=== PATIENT | male | born 1940 | race Caucasian/White ===

== ENCOUNTER 2017-07-03 15:58 | Emergency (ER) | payer OTHER ==
--- OUTSIDE RECORDS SUMMARY | 2017-07-03 16:01 | XMS REPORT | Clinical Summary ---
:1940 Author Organization [facility] Address [address] [place] [address] Care Team Providers Name Role Phone Asked, No Pcp Primary Care Provider Unavailable Allergies No Known Allergies Current Medications Prescription Sig. Disp. Refills Start Date End Date Status donepezil (ARICEPT) 5 Take 5 mg by Active MG tablet mouth nightly. acetaminophen Take 2 tablets 180 tablet 0 07/02/2017 08/01/2017 Active (TYLENOL) 500 MG (1,000 mg total) tablet by mouth every 8 (eight) hours for 30 days. traMADol (ULTRAM) 50 Take 1 tablet 30 tablet 0 07/02/2017 07/16/2017 Active mg tablet (50 mg total) by mouth every 6 (six) hours as needed for moderate pain for up to 14 days. enoxaparin (LOVENOX) Inject 0.4 mL 21 Syringe 0 07/03/2017 07/24/2017 Active 40 mg/0.4 mL syringe (40 mg total) under the skin daily for 21 days. ibuprofen Take 1 tablet 120 tablet 0 07/02/2017 08/01/2017 Active (ADVIL,MOTRIN) 400 MG (400 mg total) tablet by mouth every 6 (six) hours for 30 days. methocarbamol Take 0.5 tablets 60 tablet 0 07/02/2017 08/01/2017 Active (ROBAXIN) 500 MG (250 mg total) tablet by mouth 4 (four) times a day for 30 days. 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 OPEN LEFT COLON MD Alex RESECTION W/ COLOSTOMY 06/24/2017 - Hospital Encounter General Surgery Maximilian Saleh Malignant neoplasm of sigmoid colon; 07/02/2017 MD Alex Colonic mass 06/24/2017 Anesthesia Event Gastroenterology Stella Rodriguez, AUTOMOTIVE TIRE TESTING SUPERVISOR 06/24/2017 Procedure Pass Gastroenterology 06/24/2017 Surgery Gastroenterology Maximilian Saleh COLONOSCOPY w bx MD Alex after 07/02/2016 Social History Tobacco Use Types Packs/Day Years Used Date Never Smoker Smokeless Tobacco: Never Used Alcohol Use Drinks/Week oz/Week Comments Yes social Sex Assigned at Date Recorded Not on file Last Filed Vital Signs Vital Sign Reading Time Taken Blood Pressure 129/61 07/02/2017 7:16 AM CDT Pulse 72 07/02/2017 7:16 AM CDT Temperature 36.7 C (98 F) 07/02/2017 7:16 AM CDT Respiratory Rate 17 07/02/2017 7:16 AM CDT Oxygen Saturation 98% 07/02/2017 7:16 AM CDT Inhaled Oxygen Concentration - - Weight 57.6 kg (127 lb) 06/24/2017 9:44 PM CDT Height 177.8 cm (5' 10") 06/24/2017 9:44 PM CDT Body Mass Index 18.22 06/24/2017 9:44 PM CDT Plan of Treatment Health Maintenance Due Date Last Done Comments ZOSTER VACCINE 1999 PNEUMOCOCCAL POLYSACCHARIDE VACCINE AGE 65 AND OVER 2004 PNEUMOCOCCAL-13 2004 INFLUENZA VACCINE 10/13/2017 Procedures Procedure Name Priority Date/Time Associated Diagnosis Comments HC CATH DUAL LUMEN Routine 06/25/2017 3:43 PM Results for this PICC CDT procedure are in the results section. HC US GUIDED Routine 06/25/2017 3:43 PM Results for this VASCULAR ACCESS CDT procedure are in the results section. HC CVL PICC INSERT Routine 06/25/2017 3:43 PM Results for this 5 YRS OR > CDT procedure are in the results section. CONSULT TO OSTOMY Routine 06/25/2017 2:48 PM CARE NURSE CDT ARTERIAL LINE Routine 06/25/2017 9:11 AM CDT Procedure Note - Prateek Rushing MD - 06/25/2017 9:11 AM CDT Arterial line Performed by: GEOVANNY TONEY Authorized by: HUMZA CAMPO Patient Location: OR Staff: Anesthesiologist: HUMZA CAMPO Performed by: Anesthesiologist Pre-procedure: patient identified, IV checked, site and side verified, risks and benefits discussed, procedure verified, surgical consent complete, patient position confirmed, monitors and equipment checked and pre-op evaluation complete MSBT: antiseptic used, all elements of maximal sterile barrier technique followed, hand hygiene performed, cap/gown used by other personnel and solutions labeled Indications: Indications: hemodynamic monitoring Anesthesia: Anesthesia: General Procedure Details: Arterial Line placement: Placed post induction Line placement site: Radial Line placement side: Right Arterial line gauge: 20 G Number of attempts: 1 Ultrasound guidance used: No Post-procedure: Post-procedure: Sterile dressing applied Post procedure circulation, sensation, movement: Normal Patient tolerance: Patient tolerated the procedure well with no immediate complications OPEN LEFT COLON RESECTION W/ 06/25/2017 9:00 AM CDT Malignant neoplasm of COLOSTOMY sigmoid colon Special Needs EST 2.5HRS MS AN EPIDURAL BLOCK POST-OP PAIN Routine 06/25/2017 8:49 AM CDT Procedure Note - Humza Campo, - 06/25/2017 8:49 AM CDT Epidural Block Performed by: HUMZA CAMPO Authorized by: HUMZA CAMPO Start Time: 06/25/2017 8:30 AM End Time: 06/25/2017 8:49 AM Reason for Block: post-op pain management Performed by: Anesthesiologist Preprocedure: patient identified, IV checked, site and side verified, risks and benefits discussed, procedure verified, surgical consent completed, patient position confirmed, monitors and equipment checked and pre-op evaluation completed Patient Position: Sitting Prep: Betadine Monitoring: Blood pressure monitoring, heart rate and continuous pulse oximetry Approach: Midline Interspace: T10-11 Injection Technique: OSWALDO air Needle Type: Tuohy Needle Gauge: 17 Loss of resistance: 4 cm Catheter at Skin Depth: 9 cm Test Dose: Negative and lidocaine 1.5% with epinephrine 1-to-200,000 Number of Attempts: 1 Block Outcome: No apparent complications, patient comfortable and patient tolerated procedure well Post-procedure: Patient returned to supine position with left lateral displacement and sterile dressing applied Time: 06/25/2017 8:30 AM CONSULT TO OSTOMY CARE NURSE STAT 06/24/2017 3:02 PM CDT COLONOSCOPY w bx 06/24/2017 10:00 AM CDT History of rectal cancer after 07/02/2016 Results Estimated GFR (07/01/2017 3:55 AM)Only the most recent of7 resultswithin the time period is included. Component Value Ref Range GFR Non Af Amer >90 mL/min/1.73 m2 GFR Af Amer >90 mL/min/1.73 m2 Comment: Chronic kidney disease: <60 mL/min/1.73m2 Kidney failure: <15 mL/min/1.73m2 The estimated GFR is calculated from the IDMS-traceable Modification of Diet in Renal Disease Equation. The accuracy of the calculation is poor when the creatinine is normal. Calculated values >90 mL/min/1.73m2 are not reported. This equation has not been validated in children (<18 years), women, the elderly (>70 years), or ethnic groups other than Caucasians and Americans. Specimen Performing Laboratory Plasma specimen [facility] DEPARTMENT OF PATHOLOGY AND GENOMIC MEDICINE [address] [place] [id number] Phosphorus level (07/01/2017 3:55 AM)Only the most recent of7 resultswithin the time period is included. Component Value Ref Range Phosphorus 3.3 2.4 - 4.5 mg/dL Specimen Performing Laboratory Plasma specimen [facility] DEPARTMENT OF PATHOLOGY AND [facility] MEDICINE [address] [place] [address] Magnesium level (07/01/2017 3:55 AM)Only the most recent of7 resultswithin the time period is included. Component Value Ref Range Magnesium 2.0 1.6 - 2.4 mg/dL Specimen Performing Laboratory Plasma specimen [facility] DEPARTMENT OF PATHOLOGY AND GENOMIC MEDICINE [address] [place] [id number] Basic metabolic panel (07/01/2017 3:55 AM)Only the most recent of7 resultswithin the time period is included. Component Value Ref Range Sodium 142 135 - 148 mEq/L Potassium 3.4 (L) 3.5 - 5.0 mEq/L Chloride 104 98 - 112 mEq/L CO2 27 24 - 31 mEq/L Anion gap 11 7 - 15 mEq/L Comment: Starting from June , anion gap calculation no longer incorporates potassium. Please note the change. BUN 11 8 - 23 mg/dL Creatinine 0.6 (L) 0.7 - 1.2 mg/dL Glucose 92 65 - 99 mg/dL Calcium 8.9 8.8 - 10.2 mg/dL Specimen Performing Laboratory Plasma specimen [facility] DEPARTMENT OF PATHOLOGY AND [facility] [address] [place] [address] POC glucose (07/01/2017 3:29 AM)Only the most recent of22 resultswithin the time period is included. Component Value Ref Range POC glucose 101 (H) 65 - 99 mg/dL Comment: [facility] Notified RN Meter ID: [id number] Chronic Condition Nurse: Himanshu Mullen Specimen Performing Laboratory [facility] DEPARTMENT OF PATHOLOGY AND [facility] MED[facility]INE [address] [place] [address] CBC with platelet and differential (07/01/2017 3:20 AM)Only the most recent of7 resultswithin the time period is included. Component Value Ref Range WBC 6.26 4.50 - 11.00 k/uL RBC 3.78 (L) 4.40 - 6.00 m/uL HGB 9.8 (L) 14.0 - 18.0 g/dL HCT 31.8 (L) 41.0 - 51.0 % MCV 84.1 82.0 - 100.0 fL MCH 25.9 (L) 27.0 - 34.0 pg MCHC 30.8 (L) 31.0 - 37.0 g/dL RDW - SD 42.6 37.0 - 55.0 fL MPV 9.4 8.8 - 13.2 fL Platelet count 230 150 - 400 k/uL Nucleated RBC 0.00 /100 WBC Neutrophils 66.4 39.0 - 69.0 % Lymphocytes 19.0 (L) 25.0 - 45.0 % Monocytes 8.9 0.0 - 10.0 % Eosinophils 4.8 0.0 - 5.0 % Basophils 0.6 0.0 - 1.0 % Immature granulocytes 0.3Comment: "Immature granulocytes" 0.0 - 1.0 % (promyelocytes, myelocytes, metamyelocytes) Specimen Performing Laboratory Blood [facility] DEPARTMENT OF PATHOLOGY AND [facility] MEDICINE [address] [place] [id number] Triglycerides (06/27/2017 4:00 AM) Component Value Ref Range Triglycerides 52 <150 mg/dL Specimen Performing Laboratory Plasma specimen [facility] DEPARTMENT OF PATHOLOGY AND GENOMIC MEDICINE [address] [place] [id number] XR Picc Chest Portable (06/25/2017 4:13 PM) Specimen Performing Laboratory [facility] [address] [place] [address] Narrative EXAMINATION:XR PICC CHEST PORTABLE CLINICAL HISTORY:K63.9 Disease of intestineunspecified, tpn COMPARISON:October 18, 2013 chest IMPRESSION: Right PICC line catheter has been placed. Catheter tip superior vena cava level at the tani. The lungs are clear. The heart is not enlarged. Moderate vascular ectasia and atherosclerosis of the aorta. Left subclavian transvenous pacer as before. There Lead wire projects over the left chest and neck The bony structures are within normal limits. [id number] Procedure Note Hm Interface, Radiology Results Incoming - 06/25/2017 4:43 PM CDT EXAMINATION: XR PICC CHEST PORTABLE CLINICAL HISTORY: K63.9 Disease of intestine unspecified, tpn COMPARISON: October 18, 2013 chest IMPRESSION: Right PICC line catheter has been placed. Catheter tip superior vena cava level at the tani. The lungs are clear. The heart is not enlarged. Moderate vascular ectasia and atherosclerosis of the aorta. Left subclavian transvenous pacer as before. There Lead wire projects over the left chest and neck The bony structures are within normal limits. [id number] PICC INSERTION (06/25/2017 3:43 PM) Narrative Stewart Whitaker 06/25/20173:46 PM PICC insertion Date/Time: 06/25/2017 3:44 PM Performed by: LISA HIGGINBOTHAM Authorized by: Maximilian SALEH Consent: Consent obtained:Verbal Consent given by:Patient Risks discussed: arterial puncture, incorrect placement, nerve damage, bleeding, infection, superficial thrombus and deep vein thrombus Martelle protocol: Procedure explained and questions answered to patient or proxy's satisfaction: yes Relevant documents present and verified: yes Test results available and properly labeled: yes Imaging studies available: yes Required blood products, implants, devices, and special equipment available: yes Site/side marked: yes Immediately prior to procedure, a time out was called: yes Patient identity confirmed:Verbally with patient, arm band and hospital-assigned identification number Pre-procedure details: Hand hygiene: Hand hygiene performed prior to insertion Sterile barrier technique: All elements of maximal sterile technique followed Skin preparation:2% chlorhexidine Skin preparation agent: Skin preparation agent completely dried prior to procedure Anesthesia (see MAR for exact dosages): Anesthesia method:Local infiltration Local anesthetic:Lidocaine 1% w/o epi Route of administration:Subcutaneous PICC Line Placement Details (Will create an LDA): Patient position:Flat Vessel Size (mm): 4.3. Indication:TPN Location:Right basilic Site selection rationale:LEFT AICD Device Type:Non-valved Catheter size:5 Fr PICC Characteristics: Catheter Brand:LoopIt POWER PICC External Catheter Length (cm):0 Internal Catheter Length (cm):36 Total Catheter Length (cm):36 Catheter Lot Number:[id number] Catheter Expiration Date:12/12/2018 Procedure Details: Landmarks identified: yes Ultrasound guidance: yes Sterile ultrasound techniques: Sterile gel and sterile probe covers were used Number of attempts:1 Number of PICC kits used during procedure:1 Purpose of procedure:PICC Placement Successful PICC Placement: Yes Patency/Placement:Flushes without difficulty, flushed with 10 mL normal saline, positive blood return, injection cap placed and x-ray placement verified PICC placed utlizing ultrasound-guided Modified Seldinger Technique: Yes Dressing/Securement:Antimicrobial dressing applied and catheter securement device Blood Loss Amount:Less than 20 mL Post-Procedure Details: Post-procedure:Dressing applied Tip placement confirmed by chest x-ray: Yes Patient tolerance of procedure:Tolerated well, no immediate complications Surgical pathology request (06/25/2017 1:15 PM)Only the most recent of3 resultswithin the time period is included. Component Value Ref Range Surgical pathology report See link below for PDF Lab Report Result status This is Supplemental Report to [id number] Specimen Performing Laboratory [facility] DEPARTMENT OF PATHOLOGY AND GENOMIC MEDICINE [address] [place] [id number] ECG 12 lead (06/25/2017 7:55 AM) Component Value Ref Range Ventricular rate 60 Atrial rate 60 MS interval 236 QRSD interval 174 QT interval 478 QTC interval 478 P axis 1 19 QRS axis 1 -82 T wave axis 82 EKG impression AV dual-paced rhythm with prolonged AV conduction-Abnormal ECG- In automated comparison with ECG of 18-OCT-2013 07:43,-Electronic ventricular pacemaker has replaced Sinus rhythm-Vent. rate has increased BY24 BPM- Specimen Performing Laboratory [facility] [address] [place] [address] Hepatic function panel (06/25/2017 4:00 AM) Component Value Ref Range Albumin 3.1 (L) 3.5 - 5.0 g/dL Total bilirubin 0.8 0.0 - 1.2 mg/dL Bilirubin direct <0.2 0.0 - 0.3 mg/dL Alkaline phosphatase 50 40 - 129 U/L Protein 5.9 (L) 6.3 - 8.3 g/dL Comment: 4.6-7.0 g/dL 1 week 4.4-7.6 g/dL 7 months-1year5.1-7.3 g/dL 1-2 years5.6-7.5 g/dL >3 years6.0-8.0 g/dL 18-150 6.3-8.3 g/dL ALT 7 5 - 50 U/L AST 19 10 - 50 U/L Specimen Performing Laboratory Plasma specimen [facility] DEPARTMENT OF PATHOLOGY AND [facility] [address] [place] [address] Partial thromboplastin time, activated (06/25/2017 3:30 AM) Component Value Ref Range PTT 29.8 23.0 - 36.0 sec Comment: PTT therapeutic range for unfractionated heparin is 61.0-112.0 seconds which corresponds to Anti-Xa 0.3-0.7 U/ml. Specimen Performing Laboratory Blood [facility] DEPARTMENT OF PATHOLOGY AND [address] [address] Prothrombin time with INR (06/25/2017 3:30 AM) Component Value Ref Range Prothrombin time 15.0 12.0 - 15.0 sec INR 1.2 Comment: The International Normalized Ratio (INR) is a therapeutic monitoring tool for patients who are stable on oral anticoagulant therapy. An INR of 2.0-3.0 is suggested for deep vein thrombosis/pulmonary embolism. Specimen Performing Laboratory Blood [facility] DEPARTMENT OF PATHOLOGY AND [facility] [address] [place] [address] Type and screen (06/25/2017 3:30 AM) Component Value Ref Range ABO grouping A Rh type POS Antibody screen (gel) NEG Specimen Performing Laboratory Blood [facility] DEPARTMENT OF PATHOLOGY AND [address] [address] Prealbumin level (06/24/2017 10:31 AM) Component Value Ref Range Prealbumin 12 (L) 16 - 32 mg/dL Specimen Performing Laboratory Serum [facility] DEPARTMENT OF PATHOLOGY AND GENOMIC MEDICINE [address] [place] [address] Carcinoembryonic antigen (CEA) (06/24/2017 10:31 AM) Component Value Ref Range CEA 3.0 0.0 - 3.8 ng/mL Comment: Reference range for heavy smokers:0.0 - 5.5 ng/mL The MILLY Simran 8000 CEA immunoassay was used. Results obtained with different assay methods or kits should not be used interchangeably and may be different. Specimen Performing Laboratory Serum [facility] DEPARTMENT OF PATHOLOGY AND GENOMIC MEDICINE [address] [place] [address] after 07/02/2016 Insurance Payer Benefit Plan / Group Subscriber ID Type Phone Address MEDICARE MEDICARE PART A AND B xxxxxxxxxx Medicare [place] AET[employer]MNITY xxxxxxxxx Indemnity [phone] [address]
--- NOTE | 2017-07-03 17:36 | RAD REPORT ---
EXAM DESCRIPTION: Jarred Single View07/03/2017 5:14 pm CLINICAL HISTORY: fever COMPARISON: May 1999 FINDINGS: A curvilinear density present the upper outer right hemithorax. The lungs appear clear of acute infiltrate. The heart is normal size. Pacemaker leads are place IMPRESSION: Curvilinear density in the upper outer right hemithorax probably represents a skin fold rather than a pneumothorax. However, this should confirmed with a frontal chest film obtained in exp iration
[2017-07-03 17:46] LABS: Absolute Lymphocytes (CBC) 0.3 K/uL (0.7-4.9); Absolute Monocytes 0.2 K/uL (0.1-1.3); Absolute Neutrophil 7.5 K/uL (1.8-8.0); Basophils % 0.3 % (0-1.3); Hematocrit 28.9 % (39.6-49.0); Lymphocytes % 4.1 % (15.3-44.8); MCH 26.1 pg (27.0-35.0); MCV 80.7 fL (80-100); MPV 7.5 fL (7.6-11.3); Monocytes % 2.3 % (3.3-12.3); RBC Red Blood Cell Count 3.59 M/uL (4.33-5.43)
[2017-07-03 17:53] LABS: Protime INR 1.17
[2017-07-03 17:57] LABS: Bicarbonate 27 mEq/L (21-31); Glucose Level 109 mg/dL (65-120); Lipase 16 U/L (22-51); Potassium 3.2 mEq/L (3.6-5.0); Sodium Level 138 mEq/L (135-145)
[2017-07-03] MEDS ORDERED: NA CHLORIDE 0.9% 500 ML ONE ×3 (18:00→21:30)
[2017-07-03 18:03] LABS: ALT/SGPT 30 IU/L (10-60); AST/SGOT 39 IU/L (10-42); Albumin 2.8 g/dL (3.2-5.5); Alkaline Phosphatase 49 IU/L (42-121); Amylase Level 44 U/L (28-100); BUN Blood Urea Nitrogen 16 mg/dL (6-20); Bilirubin Direct < 0.1 mg/dL (0-0.2); Bilirubin Total 0.5 mg/dL (0.3-1.2); Creatine Phosphokinase 296 IU/L (22-269); Protein, Total 6.3 g/dL (6.0-8.3)
[2017-07-03 18:27] LABS: Platelet Estimate ADEQ; Urine White Blood Cell Casts OK
[2017-07-03 18:28] LABS: Blood Morphology Comment NOT SEEN (NOT SEEN)
[2017-07-03 19:18] LABS: Urine Blood 2+ (NEG); Urine Glucose NEGATIVE (NEG); Urine Protein 1+ (NEG); Urine Specific Gravity 1.015 (1.005-1.030)
[2017-07-03 19:34] LABS: Urine Bacteria LOADED /HPF (NONE SEEN); Urine RBC <5 /HPF (NONE SEEN)
[2017-07-03 19:35] LABS: Urine Culture Reflex Order NOT NEEDED
[2017-07-03] MEDS ORDERED: CEFTRIAXONE/SWI 1gm 1 GM/10 ML SYR ONE (20:07)
[2017-07-03] MEDS ORDERED: NA CHLORIDE 0.9% 1,000 ML ONE (20:07)
--- NOTE | 2017-07-03 21:00 | RAD REPORT ---
EXAM DESCRIPTION: CT - Chest Abdomen Pelvis W Cont - 07/03/2017 8:43 pm CLINICAL HISTORY: Chest and abdominal pain. Colon carcinoma COMPARISON: May 2017 TECHNIQUE: Computed axial tomography of the chest, abdomen and pelvis was obtained. 100 cc Isovue-30 0 was administered intravenously. Oral contrast was given. All CT scans are performed using dose optimization technique as appropriate and may include automated exposure control or mA/KV adjustment according to patient size. FINDINGS: A pleural effusion is not present. A pericardial effusion is not present. The lungs are essentially clear. . No mediastinal or hilar lymphadenopathy is seen 1 A 4 millimeter area of enhancement within segment 6 of the liver is unchanged. Spleen, pancreas, adrenals and kidneys appear unremarkable. A left colectomy is present. A colostomy is present within left abdomen. A Nishant's pouch is noted. A bowel obstruction is not noted. Bowel wall is not thickened. Contrast is present within the esopha lexis indicative of GE reflux. The wall of the bladder is thickened IMPRESSION: Unremarkable CT chest Left hemicolectomy with left colostomy and Nishant's pouch. No obstruction. 4 millimeter area of enhancement within segment 6 liver is unchanged Thickening of the wall of bladder may indicate cystitis or incomplete distention
[2017-07-03] MEDS ORDERED: FENTANYL CITR 100 MCG/2 ML ONE (21:30)
--- NOTE | 2017-07-03 22:33 | ER ---
Nurse's Notes [facility] Name: Stewart Anguiano Age: 77 yrs Sex: Male : 1940 Arrival Date: 07/03/2017 Time: 16:04 Bed 20 Private MD: Diagnosis: Urinary tract infection, site not specified;Other sepsis Presentation: 07/03 15:57 Presenting complaint: EMS states: Pt. is a 77 yr. male, A \T\ O x 4, home health nurse rb1 said the pt. had a fever of 102 but when EMS arrived temperature was 100.4, BP 105/52, P 110, 96% RA. C/o abdominal pain from a new colostomy that was placed about a week ago. History of colon cancer, has colostomy bag in place. NKA. Transition of care: patient was not received from another setting of care. Onset of symptoms is unknown. Initial Sepsis Screen: Does the patient meet any 2 criteria? No. Patient's initial sepsis screen is negative. Does the patient have a suspected source of infection? No. Patient's initial sepsis screen is negative. Care prior to arrival: None. 15:57 Method Of Arrival: EMS: [facility] 15:57 Acuity: [id number] 3 rb1 Triage Assessment: 15:57 General: Appears in no apparent distress. comfortable, slender, Behavior is calm, rb1 cooperative, Reports fever for. Pain: Complains of pain in abdomen Pain currently is 7 out of 10 on a pain scale. Pain began new colostomy place a week or so ago. Neuro: Level of Consciousness is awake, alert, obeys commands, Oriented to person, place, time, situation. Cardiovascular: Capillary refill < 3 seconds is brisk in bilateral fingers. Respiratory: Airway is patent Respiratory effort is even, unlabored, Respiratory pattern is regular, symmetrical. GI: colostomy placed a week or so ago Bowel sounds present X 4 quads. : No signs and/or symptoms were reported regarding the genitourinary system. Derm: Skin is pink, warm \T\ dry. Musculoskeletal: Range of motion: intact in all extremities. 15:57 Derm: 18 ankita noted to midline abdomen s/p new colostomy about a week ago. rb1 Historical: - Allergies: 15:57 No Known Allergies; rb1 - PMHx: 15:57 colon cancer; rb1 - PSHx: 15:57 Colostomy; rb1 - Immunization history:: Adult Immunizations unknown. - Social history:: Smoking status: unknown. Screenin:57 Abuse screen: Denies threats or abuse. Nutritional screening: No deficits noted. rb1 Tuberculosis screening: No symptoms or risk factors identified. Fall Risk None identified. Assessment: 15:57 General: See triage assessment. rb1 16:48 Reassessment: Patient appears in no apparent distress at this time. No changes from rb1 previously documented assessment. 17:47 Reassessment: Patient appears in no apparent distress at this time. Patient and/or rb1 family updated on plan of care and expected duration. Pain level reassessed. Patient is alert, oriented x 3, equal unlabored respirations, skin warm/dry/pink. 18:44 Reassessment: Patient appears in no apparent distress at this time. No changes from rb1 previously documented assessment. 19:15 Reassessment: Patient appears in no apparent distress at this time. Patient and/or bs1 family updated on plan of care and expected duration. Pain level reassessed. Patient is alert, oriented x 3, equal unlabored respirations, skin warm/dry/pink. Report given by YENIFER Moreira. 19:15 General: Appears uncomfortable. Neuro: Level of Consciousness is awake, alert, Oriented bs1 to person, place, time. Cardiovascular: Denies chest pain, palpitations, shortness of breath, Heart tones S1 S2 present. Respiratory: Airway is patent Trachea midline Breath sounds are clear bilaterally. GI: Abdomen is flat, ankita noted from previous surgery to mid abdominal wall, colostomy bag noted to left lower quad. Colostomy site Bowel sounds present X 4 quads. Abdomen is tender to palpation X 4 quads. GI:. : No deficits noted. No signs and/or symptoms were reported regarding the genitourinary system. Musculoskeletal: Circulation, motion, and sensation intact. Capillary refill < 3 seconds. 22:15 Reassessment: Changed patients colostomy bag, applied gladys 17428 70mm 2 3/4 in bs1 bag. Stoma size 38mm x 1 1/2. Patient tolerated, foul odor noted, patients stoma not pink, dark green/ brownish in color, red around stoma site, patient reports pain to site. Vital Signs: 15:57 BP 115 / 59; Pulse 79; Resp 18; Temp 99.1(TE); Pulse Ox 96% on R/A; Weight 55.79 kg; rb1 Height 5 ft. 7 in. (170.18 cm); Pain 7/10; 17:00 BP 80 / 64; Pulse 71; Resp 18; Pulse Ox 97% on R/A; rb1 17:11 BP 96 / 42; Pulse 66; Resp 17; Pulse Ox 98% on R/A; rb1 17:30 BP 108 / 54; Pulse 73; Resp 19; Temp 99.4(TE); Pulse Ox 96% on R/A; rb1 17:45 BP 112 / 49; Pulse 62; Resp 20; Pulse Ox 92% on R/A; rb1 18:03 BP 109 / 73; Pulse 71; Resp 18; Pulse Ox 98% on R/A; rb1 18:19 Temp 99.5(TE); rb1 19:03 BP 118 / 77; Pulse 87; Resp 18; Pulse Ox 99% on R/A; bs1 20:03 BP 128 / 58; Pulse 80; Resp 17; Pulse Ox 100% on R/A; bs1 21:03 BP 117 / 57; Pulse 70; Resp 10; Pulse Ox 100% on R/A; Pain 5/10; bs1 21:30 BP 112 / 52; Pulse 81; Resp 17; Pulse Ox 100% on R/A; Pain 6/10; bs1 22:30 BP 111 / 63; Pulse 69; Resp 18; Temp 100.7(T); Pulse Ox 96% on R/A; Pain 6/10; bs1 23:15 BP 115 / 59; Pulse 62; Resp 18; Temp 100.2(T); Pulse Ox 96% on R/A; bs1 15:57 Body Mass Index 19.26 (55.79 kg, 170.18 cm) rb1 17:00 pt. was repositioned and BP rechecked. rb1 ED Course: 15:57 Arm band placed on right wrist. rb1 15:57 Patient has correct armband on for positive identification. Bed in low position. Call rb1 light in reach. Side rails up X 1. Pulse ox on. NIBP on. 16:04 Patient arrived in ED. rb1 16:08 Damián Bhatt PA is PHCP. cp 16:08 Maximiliano Carrasquillo MD is Attending Physician. cp 16:09 Triage completed. rb1 17:14 Chest Single View XRAY In Process Unspecified. EDMS 17:31 Initial lab(s) drawn, by me, sent to lab. First set of blood cultures drawn by me. dh3 17:31 Inserted saline lock: 20 gauge in left antecubital area, using aseptic technique. Blood dh3 collected. 17:48 Second set of blood cultures drawn by venipuncture 21G right ac by me. dh3 17:57 Lillie Carrillo, RN is Primary Nurse. rb1 19:05 Report given to YENIFER Hudson. rb1 19:13 Urine collected: straight cath specimen, cloudy, tanvir colored. dh3 19:49 EKG done, by ED staff, reviewed by Damián ROSS. cc 20:43 CT Chest, Abdomen, Pelvis - W/Contrast In Process Unspecified. EDMS 20:44 CT completed. Patient tolerated procedure well. Patient moved back from CT. cw1 22:15 Dressings: Removed Colostomy bag on left lower quad, applied new Colostomy bag, bs1 Cleansed site with NS, Gladys [id number], 70 mm 2 3/4 in applied, stoma size 38mm x 1 1/2 wide. 23:26 No provider procedures requiring assistance completed. Patient transferred, IV remains bs1 in place. intact. Administered Medications: 18:00 Drug: NS 0.9% 500 ml Route: IV; Rate: bolus; Site: left antecubital; rb1 23:29 Follow up: IV Status: Completed infusion bs1 20:16 Drug: NS 0.9% 500 ml Route: IV; Rate: bolus; Site: left antecubital; bs1 23:28 Follow up: IV Status: Completed infusion bs1 20:17 Drug: Rocephin - (cefTRIAXone) 1 grams Route: IVPB; Infused Over: 30 mins; Site: left bs1 antecubital; 23:29 Follow up: IV Status: Completed infusion bs1 23:29 Follow up: IV Status: Completed infusion bs1 21:34 Drug: fentaNYL (PF) 25 mcg Route: IVP; Site: left antecubital; bs1 23:28 Follow up: Response: No adverse reaction bs1 21:35 Drug: NS 0.9% 500 ml Route: IV; Rate: bolus; Site: left antecubital; bs1 23:27 Follow up: IV Status: Completed infusion bs1 22:37 Drug: NS 0.9% 1000 ml Route: IV; Rate: 125 ml/hr; Site: left antecubital; bs1 23:29 Follow up: IV Status: Infusion continued upon transfer bs1 Outcome: 22:32 ER care complete, transfer ordered by . cp 23:27 Transferred by ground EMS to [facility], Transfer form completed. X-rays bs1 sent w/ patient. Note: Report given to [facility] 23:27 Condition: stable 23:27 Instructed on the need for transfer, Demonstrated understanding of instructions. 23:30 Patient left the ED. bs1 Addendum: 07/08/2017 09:51 Addendum: Culture Results: Positive urine culture. contacted [facility] who states patient s s has been discharged home. Signatures: Dispatcher [employer] EDMS Coco Montesinos RN RN Isadora Carmona 1 Estella Galeano cc Damián Bhatt PA PA cp Barber, Rebecca, RN RN rb1 Paulette Swift 3 Becca Laird RN RN bs1 Corrections: (The following items were deleted from the chart) 07/03 17:53 17:36 Inserted saline lock: 20 gauge in left antecubital area, using aseptic technique. 3 Blood collected. [facility] 17:53 17:36 Inserted saline lock: 20 gauge in left antecubital area, using aseptic technique. 3 Blood collected. [facility] 17:53 17:34 Initial lab(s) drawn, by dc, sent to lab. First set of blood cultures drawn by [facility], [facility] 19:29 17:30 BP 108 / 54; Pulse 73bpm; Resp 19bpm; Pulse Ox 96% RA; rb1 rb1 22:54 19:15 Reassessment: Patient appears in no apparent distress at this time. Patient bs1 and/or family updated on plan of care and expected duration. Pain level reassessed. Patient is alert, oriented x 3, equal unlabored respirations, skin warm/dry/pink. Report given by YENIFER Moreira bs1 23:04 21:03 BP 111 / 63; Pulse 69bpm; Resp 18bpm; Pulse Ox 96% RA; Temp 100.7F Tympanic; Pain bs1 6/10; bs1 23:26 23:03 BP 111 / 63; Pulse 69bpm; Resp 18bpm; Pulse Ox 96% RA; Temp 100.7F Tympanic; Pain bs1 6/10; bs1
--- NOTE | 2017-07-03 22:33 | EDPHYS ---
Physician Documentation [facility] Name: Stewart Anguiano Age: 77 yrs Sex: Male : 1940 Arrival Date: 07/03/2017 Time: 16:04 Bed 20 Private MD: ED Physician Maximiliano Carrasquillo HPI: 07/03 16:50 This 77 yrs old Male presents to ER via EMS with complaints of Abdominal Pain.cp 16:50 The patient presents with abdominal pain that is diffuse. Associated signs and cp symptoms: Pertinent positives: fever, Pertinent negatives: blood in stools, constipation, headache, vomiting. 16:50 EMS reports patient had fever of 102 today. Patient released yesterday from [facility] after having colon resection surgery with colostomy placement by DR Adkins on 06-25-2017 for colon cancer. Historical: - Allergies: 15:57 No Known Allergies; rb1 - PMHx: 15:57 colon cancer; rb1 - PSHx: 15:57 Colostomy; rb1 - Immunization history:: Adult Immunizations unknown. - Social history:: Smoking status: unknown. ROS: 17:00 Constitutional: Positive for chills, fever, Negative for poor PO intake. cp 17:00 Eyes: Negative for injury, pain, redness, and discharge. cp 17:00 ENT: Negative for drainage from ear(s), ear pain, sore throat, difficulty swallowing, difficulty handling secretions. 17:00 Cardiovascular: Negative for chest pain, palpitations. 17:00 Respiratory: Negative for cough, shortness of breath, wheezing. 17:00 Abdomen/GI: Positive for abdominal pain, Negative for vomiting, constipation, anorexia, dysphagia, black/tarry stool. 17:00 Back: Negative for pain at rest, pain with movement, radiated pain. 17:00 : Negative for urinary symptoms. 17:00 Skin: Negative for cellulitis, rash. 17:00 Neuro: Negative for altered mental status, headache, weakness. 17:00 All other systems are negative. Exam: 17:05 Constitutional: The patient appears in no acute distress, alert, awake, cp non-diaphoretic, well developed, well nourished, appears ill 17:05 Head/Face: Normocephalic, atraumatic. cp 17:05 Eyes: Periorbital structures: appear normal, Pupils: equal, round, and reactive to light and accomodation, Extraocular movements: intact throughout, Conjunctiva: normal, no exudate, no injection, Sclera: no appreciated abnormality, Lids and lashes: appear normal, bilaterally. 17:05 ENT: External ear(s): are unremarkable, Ear canal(s): are normal, clear, TM's: bulging, is not appreciated, bilaterally, dullness, bilaterally, erythema, is not appreciated, bilaterally, Nose: is normal, Mouth: Lips: dry, Oral mucosa: dry, Posterior pharynx: Airway: no evidence of obstruction, patent, Tonsils: are normal in appearance, Uvula: midline, swelling, is not appreciated, erythema, that is mild, exudate, is not appreciated, Voice: is normal. 17:05 Neck: ROM/movement: is normal, is supple, without pain, no range of motions limitations, no meningismus, no nuchal rigidity, Lymph nodes: no appreciated lymphadenopathy. 17:05 Chest/axilla: Inspection: normal, Palpation: is normal, no crepitus, no tenderness. 17:05 Cardiovascular: Rate: normal, Rhythm: regular, Pulses: Pulses are 2+ in right radial artery and left radial artery. Edema: is not appreciated, JVD: is not appreciated. 17:05 Respiratory: the patient does not display signs of respiratory distress, Respirations: normal, no use of accessory muscles, no retractions, no splinting, no tachypnea, labored breathing, is not present, Breath sounds: are clear throughout, no decreased breath sounds, no stridor, no wheezing. 17:05 Abdomen/GI: Inspection: scar(s), are noted in the midline lower abdomen, colostomy LLQ, Bowel sounds: active, all quadrants, Palpation: soft, in all quadrants, mild abdominal tenderness, in all quadrants, rebound tenderness, is not appreciated, voluntary guarding, is not appreciated, involuntary guarding, is not appreciated. 17:05 Back: pain, is absent, ROM is normal. 17:05 Skin: cellulitis, is not appreciated, no rash present. 17:05 Neuro: Orientation: to person, place, situation, Mentation: lucid, able to follow commands, Cerebellar function: is grossly normal, Motor: moves all fours, strength is normal, Sensation: no obvious gross deficits. 19:30 ECG was reviewed by the Attending Physician. cp Vital Signs: 15:57 BP 115 / 59; Pulse 79; Resp 18; Temp 99.1(TE); Pulse Ox 96% on R/A; Weight 55.79 kg; rb1 Height 5 ft. 7 in. (170.18 cm); Pain 7/10; 17:00 BP 80 / 64; Pulse 71; Resp 18; Pulse Ox 97% on R/A; rb1 17:11 BP 96 / 42; Pulse 66; Resp 17; Pulse Ox 98% on R/A; rb1 17:30 BP 108 / 54; Pulse 73; Resp 19; Temp 99.4(TE); Pulse Ox 96% on R/A; rb1 17:45 BP 112 / 49; Pulse 62; Resp 20; Pulse Ox 92% on R/A; rb1 18:03 BP 109 / 73; Pulse 71; Resp 18; Pulse Ox 98% on R/A; rb1 18:19 Temp 99.5(TE); rb1 19:03 BP 118 / 77; Pulse 87; Resp 18; Pulse Ox 99% on R/A; bs1 20:03 BP 128 / 58; Pulse 80; Resp 17; Pulse Ox 100% on R/A; bs1 21:03 BP 117 / 57; Pulse 70; Resp 10; Pulse Ox 100% on R/A; Pain 5/10; bs1 21:30 BP 112 / 52; Pulse 81; Resp 17; Pulse Ox 100% on R/A; Pain 6/10; bs1 22:30 BP 111 / 63; Pulse 69; Resp 18; Temp 100.7(T); Pulse Ox 96% on R/A; Pain 6/10; bs1 23:15 BP 115 / 59; Pulse 62; Resp 18; Temp 100.2(T); Pulse Ox 96% on R/A; bs1 15:57 Body Mass Index 19.26 (55.79 kg, 170.18 cm) rb1 17:00 pt. was repositioned and BP rechecked. rb1 MDM: 16:19 Patient medically screened. 21:52 Data reviewed: vital signs, nurses notes, lab test result(s), EKG, radiologic studies, cp CT scan, plain films. 22:28 Physician consultation: DR Mcneil, oncall physician for DR Adkins, will accept cp patient as transfer. 07/03 16:40 Order name: Urine Microscopic Only; Complete Time: 19:58 cp 07/03 19:58 Interpretation: Normal except: UWBC TNTC; UBACT LOADED. cp 07/03 16:40 Order name: Urine Culture cp 07/03 16:40 Order name: Amylase, Serum; Complete Time: 18:21 cp 07/03 16:40 Order name: Basic Metabolic Panel; Complete Time: 18:21 cp 07/03 18:32 Interpretation: Normal except: K 3.2. cp 07/03 16:40 Order name: Blood Culture Adult (2) cp 07/03 16:40 Order name: BNP; Complete Time: 18:21 cp 07/03 16:40 Order name: CBC with Diff; Complete Time: 18:32 cp 07/03 18:32 Interpretation: Normal except: RBC 3.59; HGB 9.4; HCT 28.9; MCV 80.7; MCH 26.1; MPV cp 7.5; VERONICA% 93.3; LYM% 4.1; MN% 2.3; LYMA 0.3. 07/03 16:40 Order name: Ckmb; Complete Time: 18:21 cp 07/03 16:40 Order name: CPK; Complete Time: 18:21 cp 07/03 20:54 Interpretation: CPK 296; Reviewed. cp 07/03 16:40 Order name: Lactate; Complete Time: 18:21 cp 07/03 16:40 Order name: LFT's; Complete Time: 18:21 cp 07/03 16:40 Order name: Lipase; Complete Time: 18:21 cp 07/03 16:40 Order name: Procalcitonin; Complete Time: 19:58 cp 07/03 20:01 Interpretation: Procalcitonin 14.02; Reviewed. cp 07/03 16:40 Order name: Protime (+inr); Complete Time: 18:21 cp 07/03 16:40 Order name: Cath; Complete Time: 19:13 cp 07/03 16:40 Order name: Ptt, Activated; Complete Time: 18:21 cp 07/03 16:40 Order name: Sed Rate; Complete Time: 18:32 cp 07/03 16:40 Order name: Troponin (emerg Dept Use Only); Complete Time: 18:21 cp 07/03 16:40 Order name: Chest Single View XRAY; Complete Time: 18:21 cp 07/03 16:40 Order name: Cardiac monitoring; Complete Time: 17:55 cp 07/03 17:51 Order name: CBC Smear Scan; Complete Time: 18:32 EDMS 07/03 18:23 Order name: CT Chest, Abdomen, Pelvis - W/Contrast; Complete Time: 21:01 cp 07/03 19:15 Order name: Urine Dipstick--Ancillary (enter results); Complete Time: 19:58 em1 07/03 19:58 Interpretation: Normal except: UBLD 2+; UPROT 1+; U NIT POSITIVE; UESTR 3+. cp 07/03 16:40 Order name: EKG - Nurse/Tech; Complete Time: 19:48 cp 07/03 16:40 Order name: IV Saline Lock - Large Bore; Complete Time: 17:37 cp 07/03 16:40 Order name: Labs collected and sent; Complete Time: 17:37 cp 07/03 16:40 Order name: O2 Per Protocol; Complete Time: 17:54 cp 07/03 16:40 Order name: O2 Sat Monitoring; Complete Time: 17:54 cp 07/03 16:40 Order name: Urine Dipstick-Ancillary (obtain specimen); Complete Time: 19:13 cp EC:30 Rate is 77 beats/min. QRS interval is prolonged at 152 msec. QT interval is normal. T cp waves are Inverted in lead aVL. Interpreted by me. Reviewed by me. Administered Medications: 18:00 Drug: NS 0.9% 500 ml Route: IV; Rate: bolus; Site: left antecubital; rb1 23:29 Follow up: IV Status: Completed infusion bs1 20:16 Drug: NS 0.9% 500 ml Route: IV; Rate: bolus; Site: left antecubital; bs1 23:28 Follow up: IV Status: Completed infusion bs1 20:17 Drug: Rocephin - (cefTRIAXone) 1 grams Route: IVPB; Infused Over: 30 mins; Site: left bs1 antecubital; 23:29 Follow up: IV Status: Completed infusion bs1 23:29 Follow up: IV Status: Completed infusion bs1 21:34 Drug: fentaNYL (PF) 25 mcg Route: IVP; Site: left antecubital; bs1 23:28 Follow up: Response: No adverse reaction bs1 21:35 Drug: NS 0.9% 500 ml Route: IV; Rate: bolus; Site: left antecubital; bs1 23:27 Follow up: IV Status: Completed infusion bs1 22:37 Drug: NS 0.9% 1000 ml Route: IV; Rate: 125 ml/hr; Site: left antecubital; bs1 23:29 Follow up: IV Status: Infusion continued upon transfer bs1 Disposition: 07/03/17 22:32 Transfer ordered to [facility]. Diagnosis are Urinary tract infection, site not specified, Other sepsis. - Reason for transfer: Higher level of care. - Accepting physician is DR Saleh. - Condition is Stable. - Problem is new. - Symptoms have improved. Signatures: Dispatcher [employer] EDMS Damián Bhatt PA PA cp Barber, Rebecca RN RN rb1 Becca Laird RN RN bs1 Corrections: (The following items were deleted from the chart) 19:33 16:40 Accucheck ordered. stefany rb1
--- NOTE | 2017-07-04 12:04 | EKG ---
Test Date: 2017-07-03 Test Time: 19:23:51 Air Surveillance Operator: KASANDRA MEASUREMENT RESULTS: Intervals: Rate: 77 IL: QRSD: 152 QT: 426 QTc: 482 [place]: P: 13 IL: QRS: -84 T: 78 INTERPRETIVE STATEMENTS: Ventricular-paced rhythm with occasional premature ventricular complexes Abnormal ECG No previous ECG available for comparison Electronically Signed On 07-04-17 12:03:23 CDT by Bry Poole
== END 2017-07-03 23:30 | disposition short-term general hospital (02) ==
LOC: ER 15:58
DX: A41.89 Other specified sepsis (principal); N39.0 Urinary tract infection, site not specified; Z85.038 Personal history of other malignant neoplasm of large intestine; Z98.890 Other specified postprocedural states
CPT/HCPCS: 36415; 71045; 71260; 74177; 80048; 80076; 82150; 82550; 82553; 83605; 83690; 83880; 84145; 84484; 85025; 85610; 85652; 85730; 87040 ×2; 87077; 87086; 87088; 87186; 93005; 96361; 96365; 96366; 96375; 99285; J0696; J3010; J7030; Q9967; 81003; 81015

== ENCOUNTER 2020-06-18 16:44 | Inpatient (IN) | payer OTHER ==
[2020-06-18 20:09] LABS: Urine Blood 3+ (Negative); Urine Glucose Negative (Negative); Urine Protein 2+ (Negative); Urine Specific Gravity 1.025 (1.005-1.030)
[2020-06-18] MEDS ORDERED: NA CHLORIDE 0.9% 1,000 ML ONE (20:11)
[2020-06-18] MEDS ORDERED: FOLIC ACID 5 MG/ML VIAL ONE (20:11)
[2020-06-18 20:14] LABS: Absolute Lymphocytes (CBC) 0.7 K/uL (0.7-4.9); Basophils % 0.3 % (0-1.3); Hematocrit 40.5 % (39.6-49.0); Lymphocytes % 12.2 % (15.3-44.8); MPV 8.5 fL (7.6-11.3)
--- NOTE | 2020-06-18 20:19 | RAD REPORT ---
EXAM DESCRIPTION: CT - Head Brain Wo Cont - 06/18/2020 7:55 pm CLINICAL HISTORY: MENTAL STATUS CHANGE Headache, drowsiness COMPARISON: Head Brain Wo Cont dated 12/31/2016 TECHNIQUE: All CT scans are performed using dose optimization technique as appropriate and may inclu de automated exposure control or mA/KV adjustment according to patient size. FINDINGS: No intracranial hemorrhage, hydrocephalus or extra-axial fluid collection.Advanced brain a trophy is noted.No areas of brain edema or evidence of midline shift. Right vertebral artery is calci fied. The paranasal sinuses and mastoids are clear. The calvarium is intact. IMPRESSION: No acute intracranial abnormality. Advanced brain atrophy.
[2020-06-18 20:21] LABS: Protime INR 1.14
--- NOTE | 2020-06-18 20:22 | RAD REPORT ---
EXAM DESCRIPTION: RAD - Chest Single View - 06/18/2020 8:15 pm CLINICAL HISTORY: DYSPNEA Chest pain. COMPARISON: Chest Single View dated 07/03/2017; Chest Pa And Lat (2 Views) dated 05/26/2017; CHEST PA AND LAT 2 VIEW dated 07/26/2013 FINDINGS: Portable technique limits examination quality. The lungs are grossly clear. The heart is normal in size. No displaced fractures.Dual lead pacer hannah ce is present. IMPRESSION: No acute intrathoracic process suspected.
[2020-06-18 20:35] LABS: ALT/SGPT 21 U/L (12-78); AST/SGOT 24 U/L (15-37); Alkaline Phosphatase 55 U/L (45-117); BUN Blood Urea Nitrogen 22 mg/dL (7-18); Bicarbonate 30 mmol/L (21-32); Bilirubin Direct 0.3 mg/dL (0-0.2); Bilirubin Total 1.4 mg/dL (0.2-1.0); Glucose Level 84 mg/dL (74-106); Magnesium 2.1 mg/dL (1.8-2.4); NT PRO-BNP 189 pg/mL (<450); Potassium 3.6 mmol/L (3.5-5.1); Protein, Total 7.3 g/dL (6.4-8.2); Sodium Level 142 mmol/L (136-145); Troponin (Emerg Dept Use Only) < 0.02 ng/mL (0.0-0.045)
--- NOTE | 2020-06-18 21:13 | RAD REPORT ---
EXAM DESCRIPTION: CTAbdomen Pelvis W Contrast - 06/18/2020 9:01 pm CLINICAL HISTORY: Abdominal pain. HEMATURIA COMPARISON: Abdomen Pelvis W Contrast dated 05/27/2017; CT ABD PELVIS W CONTRAST dated 08/02/2013 TECHNIQUE: Biphasic CT imaging of the abdomen and pelvis was performed with 100 ml non-ionic IV cont rast. All CT scans are performed using dose optimization technique as appropriate and may include automated exposure control or mA/KV adjustment according to patient size. FINDINGS: The lung bases are clear.Pacer wires are present in the inferior aspect heart. The liver, spleen, pancreas, adrenal glands and kidneys are within normal limits. No bowel obstruction, free air, free fluid or abscess. The appendix is normal. No evidence of signi ficant lymphadenopathy. Soft tissue density material is present in the urinary bladder measuring 6.3 x 5.0 cm. This may repre sent a blood clot or mass. No suspicious bony findings. IMPRESSION: Soft tissue density material within the urinary bladder may represent blood clot or mass . Cystoscopy followup would be advised.
--- NOTE | 2020-06-18 21:17 | EDPHYS ---
Physician Documentation [facility] Name: Stewart Anguiano Age: 80 yrs Sex: Male : 1940 Arrival Date: 06/18/2020 Time: 16:50 Bed 6 Private MD: Luis Carrera W ED Physician Damián Mendes HPI: 06/18 19:44 This 80 yrs old Male presents to ER via Ambulatory with complaints of Altered mansoor Mental Status. 19:44 The patient presents with confusion, trouble concentrating. Onset: The symptoms/episode mansoor began/occurred 1 week(s) ago. Possible causes: unknown. Associated signs and symptoms: Pertinent positives: lightheadedness, weakness. Current symptoms: In the emergency department the patient's symptoms are unchanged from the initial presentation, despite home interventions. Patient's baseline: Neuro: alert and fully oriented. The patient has not experienced similar symptoms in the past. Historical: - Allergies: 17:01 No Known Allergies; ll1 - PMHx: 17:01 colon cancer; ll1 - PSHx: 17:01 Colostomy; ll1 - Immunization history:: Flu vaccine is not up to date. - Social history:: Smoking status: Patient denies any tobacco usage or history of. - Family history:: not pertinent. ROS: 19:44 Constitutional: Negative for fever, chills, and weight loss, Eyes: Negative for injury, mansoor pain, redness, and discharge, ENT: Negative for injury, pain, and discharge, Neck: Negative for injury, pain, and swelling, Cardiovascular: Negative for chest pain, palpitations, and edema, Respiratory: Negative for shortness of breath, cough, wheezing, and pleuritic chest pain, Abdomen/GI: Negative for abdominal pain, nausea, vomiting, diarrhea, and constipation, Back: Negative for injury and pain, : Negative for injury, bleeding, discharge, and swelling, MS/Extremity: Negative for injury and deformity, Skin: Negative for injury, rash, and discoloration, Psych: Negative for depression, anxiety, suicide ideation, homicidal ideation, and hallucinations, Allergy/Immunology: Negative for hives, rash, and allergies, Endocrine: Negative for neck swelling, polydipsia, polyuria, polyphagia, and marked weight changes, Hematologic/Lymphatic: Negative for swollen nodes, abnormal bleeding, and unusual bruising. 19:44 Neuro: Positive for weakness. Exam: 19:44 Constitutional: This is a well developed, well nourished patient who is awake, alert, mansoor and in no acute distress. Head/Face: Normocephalic, atraumatic. Eyes: Pupils equal round and reactive to light, extra-ocular motions intact. Lids and lashes normal. Conjunctiva and sclera are non-icteric and not injected. Cornea within normal limits. Periorbital areas with no swelling, redness, or edema. ENT: Nares patent. No nasal discharge, no septal abnormalities noted. Tympanic membranes are normal and external auditory canals are clear. Oropharynx with no redness, swelling, or masses, exudates, or evidence of obstruction, uvula midline. Mucous membranes moist. Neck: Trachea midline, no thyromegaly or masses palpated, and no cervical lymphadenopathy. Supple, full range of motion without nuchal rigidity, or vertebral point tenderness. No Meningismus. Chest/axilla: Normal chest wall appearance and motion. Nontender with no deformity. No lesions are appreciated. Cardiovascular: Regular rate and rhythm with a normal S1 and S2. No gallops, murmurs, or rubs. Normal PMI, no JVD. No pulse deficits. Respiratory: Lungs have equal breath sounds bilaterally, clear to auscultation and percussion. No rales, rhonchi or wheezes noted. No increased work of breathing, no retractions or nasal flaring. Abdomen/GI: Soft, non-tender, with normal bowel sounds. No distension or tympany. No guarding or rebound. No evidence of tenderness throughout. Back: No spinal tenderness. No costovertebral tenderness. Full range of motion. Male : Normal genitalia with no discharge or lesions. Skin: Warm, dry with normal turgor. Normal color with no rashes, no lesions, and no evidence of cellulitis. MS/ Extremity: Pulses equal, no cyanosis. Neurovascular intact. Full, normal range of motion. Neuro: Awake and alert, GCS 15, oriented to person, place, time, and situation. Cranial nerves II-XII grossly intact. Motor strength 5/5 in all extremities. Sensory grossly intact. Cerebellar exam normal. Normal gait. Psych: Awake, alert, with orientation to person, place and time. Behavior, mood, and affect are within normal limits. 20:03 ECG was reviewed by the Attending Physician. [facility] Vital Signs: 17:01 BP 135 / 73; Pulse 80; Resp 17; Temp 98.6; Pulse Ox 98% ; Pain 0/10; ll1 21:31 Pulse 80; Resp 18; Pulse Ox 99% on 3 lpm NC; mg2 23:30 BP 120 / 52; Pulse 75; Resp 18; Pulse Ox 100% on R/A; NIH Stroke Scale Scores: 19:44 NIHSS Score: 0 mansoor MDM: 19:17 Patient medically screened. mansoor 19:48 Differential Diagnosis: electrolyte abnormality, sepsis, UTI, volume depletion. Data mansoor reviewed: vital signs, nurses notes, lab test result(s), EKG, radiologic studies, CT scan. Data interpreted: cafeteria monitor: rate is 80 beats/min, rhythm is regular, Pulse oximetry: on room air is 98 %. Test interpretation: by ED physician or midlevel provider: ECG, plain radiologic studies. Counseling: I had a detailed discussion with the patient and/or guardian regarding: the historical points, exam findings, and any diagnostic results supporting the discharge/admit diagnosis, lab results, radiology results. 06/18 19:43 Order name: Basic Metabolic Panel [facility] 06/18 19:43 Order name: CBC with Diff; Complete Time: 20:34 [facility] 06/18 19:43 Order name: LFT's; Complete Time: 21:11 [facility] 06/18 19:43 Order name: Magnesium; Complete Time: 21:11 [facility] 06/18 19:43 Order name: NT PRO-BNP; Complete Time: 21:11 [facility] 06/18 19:43 Order name: PT-INR; Complete Time: 20:34 [facility] 06/18 19:43 Order name: Troponin (emerg Dept Use Only); Complete Time: 21:11 [facility] 06/18 19:43 Order name: XRAY Chest (1 view); Complete Time: 20:34 [facility] 06/18 19:43 Order name: Urine Culture [facility] 06/18 19:43 Order name: CT Head Brain wo Cont; Complete Time: 20:34 [facility] 06/18 19:43 Order name: Basic Metabolic Panel; Complete Time: 21:11 [facility] 06/18 20:09 Order name: Urine Dipstick-Ancillary; Complete Time: 20:34 [facility] 06/18 20:58 Order name: SARS-COV-2 RT PCR; Complete Time: 21:11 [facility]MS 06/18 19:43 Order name: EKG; Complete Time: 19:44 [facility] 06/18 19:43 Order name: Cardiac monitoring; Complete Time: 19:45 [facility] 06/18 19:43 Order name: EKG - Nurse/Tech; Complete Time: 19:45 [facility] 06/18 19:43 Order name: IV Saline Lock; Complete Time: 19:45 [facility] 06/18 19:43 Order name: Labs collected and sent; Complete Time: 19:45 [facility] 06/18 19:43 Order name: O2 Per Protocol; Complete Time: 19:45 [facility] 06/18 19:43 Order name: O2 Sat Monitoring; Complete Time: 19:45 [facility] 06/18 19:43 Order name: Urine Dipstick-Ancillary (obtain specimen); Complete Time: 19:57 [facility] 06/18 20:35 Order name: CT Abd/Pelvis - IV Contrast Only; Complete Time: 21:44 [facility] 06/18 23:12 Order name: CONS Physician Consult EDMS EC:03 Rate is 65 beats/min. Rhythm is regular. QRS [place] is Normal. WA interval is normal. QRS mansoor interval is normal. QT interval is normal. No Q waves. T waves are Normal. No ST changes noted. Clinical impression: No evidence of ischemia. Interpreted by me. Reviewed by me. Administered Medications: 20:07 Drug: foLIC Acid 1 mg Route: IVPB; Site: left antecubital; [facility] 23:50 Follow up: Response: No adverse reaction; IV Status: Completed infusion 20:11 Drug: NS 0.9% 500 ml Route: IV; Rate: bolus; Site: left antecubital; wh 23:51 Follow up: Response: No adverse reaction; IV Status: Completed infusion 20:29 Drug: NS 0.9% 1000 ml Route: IV; Rate: 125 ml/hr; Site: left antecubital; wh 23:50 Follow up: Response: No adverse reaction; IV Status: Infusion continued upon admission 22:50 Drug: Rocephin - (cefTRIAXone) 1 grams Route: IVPB; Infused Over: 30 mins; Site: left wh antecubital; 23:50 Follow up: Response: No adverse reaction; IV Status: Completed infusion Disposition: 06/18/20 21:16 Hospitalization ordered by Zara Cadet for Observation. Preliminary diagnosis are Altered mental status, unspecified, Dementia in other diseases classified elsewhere, Weakness, Hematuria - bladder soft tissue mass. - Bed requested for Telemetry/MedSurg (observation). - Status is Observation. - Condition is Fair. - Problem is new. - Symptoms have improved. NIH Stroke Scale - NIH Stroke Score Date: 06/18/2020 Time: 19:44 Total Score = 0 1a. Level of Consciousness (LOC) - 0(Alert) 1b. Level of Consciousness (LOC) (Year \T\ Age) - 0(Both) 1c. LOC Commands (Open \T\ Closes Eyes/Materials Recycler) - 0(Both) 2. Best Gaze (Lateral Gaze Paresis) - 0(Normal) 3. Visual Field Loss - 0(No visual loss) 4. Facial Palsy - 0(Normal) 5a. Left Arm: Motor (10-second hold) - 0(No drift) 5b. Right Arm: Motor (10-second hold) - 0(No drift) 6a. Left Leg: Motor (5-second hold - always test supine) - 0(No drift) 6b. Right Leg: Motor (5-second hold - always test supine) - 0(No drift) 7. Limb Ataxia (finger/nose \T\ heel/singh - test with eyes open) - 0(Absent) 8. Sensory Loss (pinprick arms/legs/face) - 0(Normal) 9. Best Language: Aphasia (description/naming/reading) - 0(No aphasia) 10. Dysarthria (speech clarity - read or repeat words) - 0(Normal) 11. Extinction and Inattention (visual/tactile/auditory/spatial/personal) - 0(No abnormality) Initials: mansoor Signatures: Dispatcher [employer] EDMS Damián Mendes MD MD cha Garcia, Cindy RN RN Ami Antonio RN RN Usman Davis RN RN [facility] Meseret Hightower RN RN ll1 Corrections: (The following items were deleted from the chart) 20:11 19:43 CORONAVIRUS+MR.LAB.BRZ ordered. EDCO EDMS 21:45 21:16 Hospitalization Ordered by Zara Cadet MD for Observation. Preliminary [facility] diagnosis is Altered mental status, unspecified; Dementia in other diseases classified elsewhere; Weakness. Bed requested for Telemetry/MedSurg (observation). Status is Observation. Condition is Fair. Problem is new. Symptoms have improved. mansoor 23:15 21:45 06/18/2020 21:16 Hospitalization Ordered by Zara Cadet MD for Observation. Preliminary diagnosis is Altered mental status, unspecified; Dementia in other diseases classified elsewhere; Weakness; Hematuria - bladder soft tissue mass. Bed requested for Telemetry/MedSurg (observation). Status is Observation. Condition is Fair. Problem is new. Symptoms have improved. mansoor 06/19 00:06 [id number] 23:15 06/18/2020 21:16 Hospitalization Ordered by Zara Cadet MD for Observation. Preliminary diagnosis is Altered mental status, unspecified; Dementia in other diseases classified elsewhere; Weakness; Hematuria - bladder soft tissue mass. Bed requested for Telemetry/MedSurg (observation). Status is Observation. Condition is Fair. Problem is new. Symptoms have improved. cg
--- NOTE | 2020-06-18 21:17 | ER ---
Nurse's Notes [facility] Name: Stewart Anguiano Age: 80 yrs Sex: Male : 1940 Arrival Date: 06/18/2020 Time: 16:50 Bed 6 Private MD: Luis Carrera W Diagnosis: Altered mental status, unspecified;Dementia in other diseases classified elsewhere;Weakness;Hematuria-bladder soft tissue mass Presentation: 06/18 17:01 Chief complaint: Patient states: states he is a danger to himself at home, she ll1 can't watch him all the time anymore. Confusion is slowly progressing. No fever or cough. Coronavirus screen: Client denies travel out of the [place] in the last 14 days. At this time, the client does not indicate any symptoms associated with coronavirus-19. Ebola Screen: Patient denies travel to an Ebola-affected area in the 21 days before illness onset. Initial Sepsis Screen: Does the patient meet any 2 criteria? No. Patient's initial sepsis screen is negative. Does the patient have a suspected source of infection? No. Patient's initial sepsis screen is negative. Risk Assessment: Do you want to hurt yourself or someone else? Patient reports no desire to harm self or others. Onset of symptoms was June 13, 2020. 17:01 Method Of Arrival: Ambulatory ll1 17:01 Acuity: RAJEEV 2 ll1 Historical: - Allergies: 17:01 No Known Allergies; ll1 - PMHx: 17:01 colon cancer; ll1 - PSHx: 17:01 Colostomy; ll1 - Immunization history:: Flu vaccine is not up to date. - Social history:: Smoking status: Patient denies any tobacco usage or history of. - Family history:: not pertinent. Screenin:32 Abuse screen: Denies threats or abuse. Denies injuries from another. Nutritional mg2 screening: No deficits noted. Tuberculosis screening: No symptoms or risk factors identified. Fall Risk Secondary diagnosis (15 points) dementia. Assessment: 19:32 General: Appears in no apparent distress. comfortable, Behavior is calm, cooperative. mg2 Pain: Denies pain. Neuro: Level of Consciousness is awake, alert, obeys commands, Oriented to person, place. Cardiovascular: Capillary refill < 3 seconds Patient's skin is warm and dry. Respiratory: Airway is patent Respiratory effort is even, unlabored, Respiratory pattern is regular, symmetrical. GI: No signs and/or symptoms were reported involving the gastrointestinal system. : No signs and/or symptoms were reported regarding the genitourinary system. EENT: No signs and/or symptoms were reported regarding the EENT system. Derm: Skin is intact, is healthy with good turgor, Skin is pink, warm \T\ dry. normal. Musculoskeletal: Circulation, motion, and sensation intact. Capillary refill < 3 seconds. 19:57 Reassessment: patient sent to CT scan via stretcher. mg2 21:31 Reassessment: Patient appears in no apparent distress at this time. patient to be mg2 admitted. 22:00 Reassessment: Patient appears in no apparent distress at this time. Patient and/or wh family updated on plan of care and expected duration. Pain level reassessed. 23:30 Reassessment: Patient and/or family updated on plan of care and expected duration. Pain wh level reassessed. Vital Signs: 17:01 BP 135 / 73; Pulse 80; Resp 17; Temp 98.6; Pulse Ox 98% ; Pain 0/10; ll1 21:31 Pulse 80; Resp 18; Pulse Ox 99% on 3 lpm NC; mg2 23:30 BP 120 / 52; Pulse 75; Resp 18; Pulse Ox 100% on R/A; NIH Stroke Scale Scores: 19:44 NIHSS Score: 0 [facility] ED Course: 16:50 Patient arrived in ED. am2 16:50 Luis Carrera MD is Private Physician. am2 17:03 Triage completed. ll1 17:03 Arm band placed on Patient notified of wait time. ll1 19:15 Usman Davis, YENIFER is Primary Nurse. mg2 19:17 Damián Mendes MD is Attending Physician. mansoor 19:33 Patient has correct armband on for positive identification. mg2 19:33 No provider procedures requiring assistance completed. mg2 19:45 Inserted saline lock: 20 gauge in left antecubital area, using aseptic technique. Blood mg2 collected. 19:55 CT Head Brain wo Cont In Process Unspecified. EDMS 20:15 XRAY Chest (1 view) In Process Unspecified. EDMS 21:01 CT Abd/Pelvis - IV Contrast Only In Process Unspecified. EDMS 21:13 Zara Cadet MD is Hospitalizing Provider. mansoor 23:55 Patient admitted, IV remains in place. Administered Medications: 20:07 Drug: foLIC Acid 1 mg Route: IVPB; Site: left antecubital; mg2 23:50 Follow up: Response: No adverse reaction; IV Status: Completed infusion 20:11 Drug: NS 0.9% 500 ml Route: IV; Rate: bolus; Site: left antecubital; wh 23:51 Follow up: Response: No adverse reaction; IV Status: Completed infusion 20:29 Drug: NS 0.9% 1000 ml Route: IV; Rate: 125 ml/hr; Site: left antecubital; wh 23:50 Follow up: Response: No adverse reaction; IV Status: Infusion continued upon admission 22:50 Drug: Rocephin - (cefTRIAXone) 1 grams Route: IVPB; Infused Over: 30 mins; Site: left antecubital; 23:50 Follow up: Response: No adverse reaction; IV Status: Completed infusion Outcome: 21:16 Decision to Hospitalize by Provider. mansoor 23:54 Admitted to Med/surg accompanied by tech, family with patient, via stretcher, room 214, with chart, Report called to Rosalba Buckley RN 23:54 Condition: stable 23:54 Instructed on the need for admit. 06/19 00:06 Patient left the ED. NIH Stroke Scale - NIH Stroke Score Date: 06/18/2020 Time: 19:44 Total Score = 0 1a. Level of Consciousness (LOC) - 0(Alert) 1b. Level of Consciousness (LOC) (Year \T\ Age) - 0(Both) 1c. LOC Commands (Open \T\ Closes Eyes/Process Engineering Intern) - 0(Both) 2. Best Gaze (Lateral Gaze Paresis) - 0(Normal) 3. Visual Field Loss - 0(No visual loss) 4. Facial Palsy - 0(Normal) 5a. Left Arm: Motor (10-second hold) - 0(No drift) 5b. Right Arm: Motor (10-second hold) - 0(No drift) 6a. Left Leg: Motor (5-second hold - always test supine) - 0(No drift) 6b. Right Leg: Motor (5-second hold - always test supine) - 0(No drift) 7. Limb Ataxia (finger/nose \T\ heel/singh - test with eyes open) - 0(Absent) 8. Sensory Loss (pinprick arms/legs/face) - 0(Normal) 9. Best Language: Aphasia (description/naming/reading) - 0(No aphasia) 10. Dysarthria (speech clarity - read or repeat words) - 0(Normal) 11. Extinction and Inattention (visual/tactile/auditory/spatial/personal) - 0(No abnormality) Initials: mansoor Signatures: Dispatcher [employer] EDUT Damián Mendes MD MD cha Moreno, Amanda am2 Ami Antonio RN RN wh Usman Davis RN RN mg2 Meseret Hightower RN RN ll1 Corrections: (The following items were deleted from the chart) 06/18 21:31 19:32 Neuro: Level of Consciousness is awake, alert, obeys commands, Oriented mg2 to person, place, time, situation, mg2
[2020-06-18] MEDS ORDERED: CEFTRIAXONE/SWI 1gm 1 GM/10 ML SYR ONE (23:04)
[2020-06-19] MEDS ORDERED: NA CHLORIDE 0.9% 1,000 ML IV SCH (00:40)
[2020-06-19] MEDS ORDERED: ACETAMINOPHEN 500 MG TAB PO PRN (00:40)
[2020-06-19] MEDS ORDERED: ONDANSETRON 4 MG/2 ML VIAL IV PRN (00:40)
[2020-06-19 00:45] VITALS: BMI 20.7
[2020-06-19] MEDS: TEMAZEPAM 15 MG CAP PO PRN ×2 (01:35→20:59)
--- NOTE | 2020-06-19 03:49 | P.HP ---
Certification for Inpatient Patient admitted to: Observation With expected LOS: <2 Midnights Patient will require the following post-hospital care: Long Term Practitioner: I am a practitioner with admitting privileges, knowledge of patient current condition, hospital course, and medical plan of care. Services: Services provided to patient in accordance with Admission requirements found in Title 42 Section 412.3 of the Code of Federal Regulations <Huseyin Downs Stu - Last Filed: 06/19/20 03:41> Patient History Date of Service: 06/18/20 Primary Care Provider: Debi Reason for admission: AMS, hematuria History of Present Illness: Mr. Anguiano is an 80 yo male with a pacemaker, Alzheimer's disease and history of colon cancer here today for AMS. Recently, he has been entering the neighbor's house at night and has been found walking around on the road at night. His reports this started on Wednesday, but that he has been declining for years. Symptoms are worse at night. His called Dr. Carrera (PCP, Neuro) and he told them to come to the ER. He is able to tell me his full name, birthday, his 's name, that he is in a hospital, and that he is in the [facility]. He cannot tell me the year or city. CXR shows no acute intrathoracic process. CT Head shows no acute intracranial abnormality, advanced brain atrophy. Additionally, he has been having gross painless hematuria. He is a former smoker. Urine positive for ketones 4+, blood 3+, and protein 2+. CT shows soft tissue density material within the urinary bladder may represent blood clot or mass. Cystoscopy followup advised. - Past Medical/Surgical History Has patient received pneumonia vaccine in the past: No -: colon ca -: Alzheimer's -: pacemaker -: colostomy Psychosocial/ Personal History: lives home alone with - Social History Smoking Status: Former smoker Alcohol use: No CD- Drugs: No Caffeine use: No Place of Residence: Home <HimanshuHuseyin S - Last Filed: 06/19/20 03:41> Date of Service: 06/18/20 <Zara Cadet - Last Filed: 06/20/20 08:56> Allergies No Known Allergies Allergy (Verified 06/19/20 00:47) Home Medications: NK [No Home Meds] 06/19/20 Review of Systems General: Unremarkable Eyes: Unremarkable ENT: Unremarkable Respiratory: Unremarkable Cardiovascular: Unremarkable Gastrointestinal: Unremarkable Genitourinary: Hematuria, As per HPI Musculoskeletal: Unremarkable Integumentary: Unremarkable Neurological: Confusion, As per HPI Lymphatics: Unremarkable <Huseyin Downs - Last Filed: 06/19/20 03:41> Physical Examination - Vital Signs Temperature: 97.1 F Blood Pressure: 147/65 Pulse: 64 Respirations: 16 Pulse Ox (%): 99 - Physical Exam General: Alert, In no apparent distress, Oriented x2, Cooperative, Cachectic, Demented, Confused HEENT: Atraumatic, Normocephalic, PERRLA, Mucous membr. moist/pink, EOMI, Sclerae nonicteric Neck: Supple, 2+ carotid pulse no bruit, JVD not distended, No Thyromegaly, No LAD Respiratory: Clear to auscultation bilaterally, Normal air movement Cardiovascular: No edema, Normal pulses, Regular rate/rhythm, Normal S1 S2, No gallops, No rubs, No murmurs Capillary refill: <2 Seconds Gastrointestinal: Normal bowel sounds, Soft and benign, Non-distended, No ascites, No tenderness, No masses, No rebound, No guarding Musculoskeletal: No clubbing, No swelling, No contractures, No erythema, No tenderness, No warmth Integumentary: No rashes, No breakdown, No significant lesion, No tenderness/swelling, No erythema, No warmth, No cyanosis Neurological: Normal gait, Normal speech, Normal strength at 5/5 x4 extr, Normal tone, Sensation intact, Cranial nerves 3-12 intact, Normal affect, Dementia Lymphatics: No axilla or inguinal lymphadenopathy - Studies Laboratory Data (last 24 hrs) 06/18/20 19:40: PT 13.1 H, INR 1.14 06/18/20 19:40: WBC 6.10, Hgb 13.9, Hct 40.5, Plt Count 176 06/18/20 19:40: Sodium 142, Potassium 3.6, BUN 22 H, Creatinine 0.69, Glucose 84, Magnesium 2.1, Total Bilirubin 1.4 H, AST 24, ALT 21, Alkaline Phosphatase 55 <Huseyin Downs - Last Filed: 06/19/20 03:41> Assessment and Plan - Problems (Diagnosis) (1) Alzheimer's dementia Current Visit: Yes Status: Chronic Qualifiers: Alzheimer's disease onset: unspecified onset Dementia behavioral disturbance: with behavioral disturbance Qualified Code(s): G30.9 - Alzheimer's disease, unspecified; F02.81 - Dementia in other diseases classified elsewhere with behavioral disturbance (2) Hematuria Current Visit: Yes Status: Acute Qualifiers: Hematuria type: gross Qualified Code(s): R31.0 - Gross hematuria - Plan Darenyolanda consulted for Alzheimer's Restoril 15mg bedtime PRN health care social worker consult as no longer feels she can care for him at home and a assisted would be best suited urology consulted for gross hematuria dietitian consulted for possible malnutrition Discharge Plan: Residential Plan to discharge in: 24 Hours - Advance Directives Does patient have a Living Will: No Does patient have a Durable POA for Healthcare: Yes - Code Status/Comfort Care Code Status Assessed: Yes (full code) Critical Care: No Time Spent Managing Pts Care (In Minutes): 70 <Huseyin Downs - Last Filed: 06/19/20 03:41> - Problems (Diagnosis) (1) Anemia associated with acute blood loss Current Visit: Yes Status: Acute (2) Hematuria Current Visit: Yes Status: Acute Qualifiers: Hematuria type: gross Qualified Code(s): R31.0 - Gross hematuria (3) Alzheimer's dementia Current Visit: Yes Status: Chronic Qualifiers: Alzheimer's disease onset: unspecified onset Dementia behavioral disturbance: with behavioral disturbance Qualified Code(s): G30.9 - Alzheimer's disease, unspecified; F02.81 - Dementia in other diseases classified elsewhere with behavioral disturbance <Zara Cadet - Last Filed: 06/20/20 08:56> Date of Service: 06/19/20 Agree with plan of care as mentioned above. Patient will be admitted to the hospital for further intervention. Will do continuous bladder irrigation. At this time, patient not allowing this to occur. Urology consultation as well. <Zara Cadet - Last Filed: 06/20/20 08:56>
[2020-06-19 05:44] LABS: Absolute Lymphocytes (CBC) 0.9 K/uL (0.7-4.9); Basophils % 0.6 % (0-1.3); Hematocrit 34.9 % (39.6-49.0); Lymphocytes % 22.7 % (15.3-44.8); MPV 8.3 fL (7.6-11.3); RBC Red Blood Cell Count 3.91 M/uL (4.33-5.43)
[2020-06-19 06:03] LABS: ALT/SGPT 17 U/L (12-78); AST/SGOT 21 U/L (15-37); Albumin 3.3 g/dL (3.4-5.0); Alkaline Phosphatase 44 U/L (45-117); BUN Blood Urea Nitrogen 19 mg/dL (7-18); Bicarbonate 28 mmol/L (21-32); Bilirubin Total 1.1 mg/dL (0.2-1.0); Glucose Level 73 mg/dL (74-106); Magnesium 2.1 mg/dL (1.8-2.4); Phosphorus 2.8 mg/dL (2.5-4.9); Potassium 3.3 mmol/L (3.5-5.1); Sodium Level 142 mmol/L (136-145)
[2020-06-19] MEDS ORDERED: POTASSIUM CL SA 10 MEQ TAB PO ONE (07:30)
[2020-06-19] MEDS ORDERED: PNEUMOCOCCAL VACCINE 0.5 ML IMVAC ONE (08:00)
[2020-06-19] MEDS: ENOXAPARIN 40 MG/0.4 ML SQ SCH (09:00)
--- NOTE | 2020-06-19 12:48 | EKG ---
Test Date: 2020-06-18 Test Time: 19:40:40 [place] Blockers: MEASUREMENT RESULTS: Intervals: Rate: 65 ME: 222 QRSD: 170 QT: 476 QTc: 495 [place]: P: -22 ME: 222 QRS: -86 T: 91 INTERPRETIVE STATEMENTS: AV dual-paced rhythm with prolonged AV conduction Abnormal ECG Compared to ECG 07/03/2017 19:23:51 Ventricular premature complex(es) no longer present Electronically Signed On 06-19-20 12:45:31 CDT by Mingo Guzman
[2020-06-19] MEDS: RIVASTIGMINE 4.6 MG/24 HR PATCH TD SCH (21:07)
--- NOTE | 2020-06-20 00:14 | CON ---
Date of Consultation: 06/19/2020 Reason: Confusion. History: An 80-year-old gentleman with Alzheimer disease. We actually have not seen him in the [facility] in over a year. We had a brief phone followup over the summer, but he essentially was lost to follow up and refused to take his medications, refused to come to the office. His has multip le medical problems as well. He does have a history of B12 deficiency. brought him to the [facility] yesterday because he has been exhibiting concerning and dangerous behavior, wandering off, getting lost. He actually walked into a neighbor's house and sat down and started watching television. Wif tony stated she was no longer able to care for him safely at home, needed him placed in a facility that is not something we were able to accomplish in the office. Patient was unwilling to go to nursing [facility]. The patient has essentially very poor insight into his problem. He does not feel that he has a problem with his memory. He does not realize the danger that he placed himself in by walking into so rabia's home in the middle of the night. They were advised to bring the patient to the emergency dep artment for evaluation. Evaluation revealed the hematuria and a bladder mass. He has been seen by Trevin bautista and apparently the recommendation is for outpatient cystoscopy. Additionally, the patient hill s have a history of B12 deficiency and has noted he has been noncompliant with his medications, so we will check a B12 level and administer some B12 while he is here. CT scan of the brain demonstrated advanced atrophy. CT scan of abdomen and pelvis demonstrated a 6 x 5 cm soft tissue density in the u rinary bladder, and the patient was noted to have gross hematuria in the emergency department. Consu ltation was requested. Past Medical History: Alzheimer disease. Medications: None routinely. Allergies: NONE. Social History: . The patient requires assistance with activities of daily living. Family History: Noncontributory. Review of Systems: General: Chronically ill. Eyes: Denies. Ears, nose, Throat: Denies. Cardiovascular: Pacemaker. Pulmonary: Negative. COVID negative. GI: Negative. : As alluded to. Musculoskeletal: Arthralgias. Neurologic: As noted. Psychiatric: As noted. Endocrine: Negative. Hematologic: Negative. Physical Examination: Vital Signs: 98.1, 80, 20, 156/67. Heart: Sinus rhythm. Lungs: Clear. Abdomen: Soft. Bowel sounds are present. General: He is awake, alert. He is conversant. He tells me he is in the [facility]. He tells me the date as April 18, 2003. He knows his name. He is able to recognize simple objects like a pen . As noted, he has poor insight into his problem. The patient lacks capacity for medical decision m aking and decision making in general. HEENT: Pupils reactive. Ocular motion full. Visual bishop full. Facial strength and sensation are normal. Tongue protrudes evenly. Soft palate elevates symmetrically bilaterally. Extremities: St rength full. Sensation decreased distally. Reflexes trace. FIGURE CLERK: Cerebellar exam demonstrates no ataxia. No assistive devices on gait exam. Pertinent Laboratory Data: White count 4.2, hemoglobin 12.1, platelets 147. Creatinine 0.59. Liver function test normal. 3+ blood on UA. COVID negative. Impression: Alzheimer disease advanced. Plan: The patient has poor insight in to his problem. He lacks capacity for decision making and wif e is no longer able to care for him. He needs 24-hour supervision, halfway placement. With reg minna to the Alzheimer's, we will start an Exelon patch. With regard to the B12 deficiency, we will ch digna a level and start him on daily B12. Physical Therapy has been consulted and Social Work has eval uated the patient as well. Thank you for the consult. CHON Voice ID: [id number] Report ID: [id number]
--- NOTE | 2020-06-20 00:45 | CON ---
Reason For Consultation: Gross hematuria and suspected bladder mass. History Of Present Illness: Mr. Anguiano is an 80-year-old gentleman with underlying dementia who prese nts via the emergency department with altered mental status and gross hematuria. He was admitted and a CT scan was performed, which showed no evidence of any upper tract lesions but a potential mass wi thin the bladder. Upon communicating with the patient, who was a poor historian due to his dementia, as well as his who was at the bedside but could only provide limited additional information, he noted that over the last 3 months at least, he has had intermittent gross hematuria. He describes i t as coming on lasting for a few days and then resolving only to recur a week or 2 later. He never h ad or felt any difficulty with voiding or got to the point of obstruction or retention. He also judith ed any significant dysuria, only noting mild initial strain, dysuria that occasionally occurs. He ot herwise denies any significant hesitancy or difficulty of voiding. Past Medical History: The patient had a history of colon cancer and underwent colon resection with c olostomy and reversal, but he does not recall the date. Allergies: HE HAS NO KNOWN DRUG ALLERGIES. Medications: None were on file from home. Social History: The patient was a former smoker of at least 10 to 15 years, but presumably quit 18 y ears ago associated with his employment with [employer]. It is unclear exactly how much he smoked as the patient was unable to relay the information. Physical Examination: On examination, the patient was well appearing, ambulatory, and in no acute distress. At the time I met him, he was standing in the hallway having a relatively confused conversation about his location within the facility with the nurse. I introduced myself and escorted the patient back to his room explaining that I was the Urology consu ltant and I needed to discuss with him and examine him relative to the blood in his urine. He did return to the room where he was cooperative with the exam. He had no signs of dyspnea or respiratory distress. His abdomen was soft, nontender, nondistended. There were no masses. He had a lower midline abdominal incision that was well healed and intact. No colostomy was present at this time. Genital exam: He was uncircumcised without any glander lesions or skin lesions of the prepuce. The meatus was patent and there was no evidence of any lesion. The testicles were bilaterally descended without mass and nontender. Digital rectal exam: The prostate was approximately 45 g, not appreciably tender, and no masses were noted within the prostate though it was moderately firm. I then requested the patient to void into a urinal so that I could observe the coloring character of his urine. He then was able to void with ease into the urinal approximately 150 to 200 cc of clear y ellow urine. Bladder scan was then performed and revealed no significant postvoid residual. CT scan was reviewed and there were no upper tract lesions of concern, and the bladder was relatively decompressed with a fluid density lesion observable within. Assessment: This is an 80-year-old gentleman with significant dementia and a history of colon cancer status post partial colectomy with colostomy reversal, who presents with a remote history of smoking , now with intermittent painless gross hematuria and a suspected bladder mass on IV contrast only CT. I counseled the patient and his extensively about the risk that the blood in the urine reflects relative to the likelihood of there being bladder cancer. I explained that timeliness was an importa nt aspect in this evaluation to prevent the cancer progressing and/or metastasizing. I provided them with my card for my office and wrote on the card that he would not be recommended for cystoscopy max imally within the next 3 weeks to evaluate the suspected bladder mass. We will follow up on the urine culture sent from the emergency department or as an inpatient prior to that visit. MILO/EPPE Voice ID: [id number] Report ID: [id number]
--- NOTE | 2020-06-20 08:55 | P.PN ---
Subjective Date of Service: 06/19/20 Subjective: No new changes, No C/O voiced, Improving Review of Systems 10-point ROS is otherwise unremarkable Physical Examination - Vital Signs Temperature: 97.7 F Blood Pressure: 156/77 Pulse: 61 Respirations: 16 Pulse Ox (%): 97 - Physical Exam General: Alert, In no apparent distress, Demented Respiratory: Clear to auscultation bilaterally, Normal air movement Cardiovascular: Regular rate/rhythm, Normal S1 S2 Gastrointestinal: Normal bowel sounds, Soft and benign, Non-distended, Tenderness Musculoskeletal: No clubbing, No swelling, No tenderness Neurological: Sensation intact, Cranial nerves 3-12 intact Urinary: Other (Hematuria but patient refusing Santiago catheter for bladder irrigation) - Studies Medications List Reviewed: Yes Assessment & Plan - Problems (Diagnosis) (1) Anemia associated with acute blood loss Current Visit: Yes Status: Acute (2) Hematuria Current Visit: Yes Status: Acute Qualifiers: Hematuria type: gross Qualified Code(s): R31.0 - Gross hematuria (3) Alzheimer's dementia Current Visit: Yes Status: Chronic Qualifiers: Alzheimer's disease onset: unspecified onset Dementia behavioral disturbance: with behavioral disturbance Qualified Code(s): G30.9 - Alzheimer's disease, unspecified; F02.81 - Dementia in other diseases classified elsewhere with behavioral disturbance - Plan Plan: 1. Monitor H&H closely 2. Plan was to do bladder irrigation but patient refusing catheter; patient with dementia but does not want us to do anything that will aggravate him 3. half-way facility placement 4. Monitor hemodynamics 5. GI and DVT prophylaxis Discharge Plan: Home Plan to discharge in: Greater than 2 days - Advance Directives Does patient have a Living Will: No Does patient have a Durable POA for Healthcare: Yes - Code Status/Comfort Care Code Status Assessed: Yes Code Status: Full Code Critical Care: No Time Spent Managing PTS Care (In Minutes): 35
--- NOTE | 2020-06-20 08:58 | P.PN ---
Date of Service: 06/20/20 Subjective Subjective: Patient refusing for bladder irrigation. Awaiting transfer to [facility] facility. Review of Systems 10-point ROS is otherwise unremarkable Physical Examination - Vital Signs Reviewed - Physical Exam General: Alert, In no apparent distress, Demented Respiratory: Clear to auscultation bilaterally, Normal air movement Cardiovascular: Regular rate/rhythm, Normal S1 S2 Gastrointestinal: Normal bowel sounds, Soft and benign, Non-distended, Tenderness Musculoskeletal: No clubbing, No swelling, No tenderness Neurological: Sensation intact, Cranial nerves 3-12 intact Urinary: Other (Hematuria but patient refusing Santiago catheter for bladder irrigation) Assessment & Plan - Problems (Diagnosis) (1) Anemia associated with acute blood loss Current Visit: Yes Status: Acute (2) Hematuria Current Visit: Yes Status: Acute Qualifiers: Hematuria type: gross Qualified Code(s): R31.0 - Gross hematuria (3) Alzheimer's dementia Current Visit: Yes Status: Chronic Qualifiers: Alzheimer's disease onset: unspecified onset Dementia behavioral disturbance: with behavioral disturbance Qualified Code(s): G30.9 - Alzheimer's disease, unspecified; F02.81 - Dementia in other diseases classified elsewhere with behavioral disturbance - Plan Plan: Continue with plan of care as mentioned below 1. Monitor H&H closely 2. Plan was to do bladder irrigation but patient refusing catheter; patient with dementia but does not want us to do anything that will aggravate him 3. custodial facility placement 4. Monitor hemodynamics 5. GI and DVT prophylaxis
[2020-06-20] MEDS: ENOXAPARIN 40 MG/0.4 ML SQ SCH (09:00)
[2020-06-20] MEDS ORDERED: CYANOCOBALAMIN 1000MCG/ML INJ IM SCH (09:00)
[2020-06-20] MEDS: RIVASTIGMINE 4.6 MG/24 HR PATCH TD SCH (09:52)
[2020-06-20 11:12] VITALS: O2SAT 96
[2020-06-20 13:59] VITALS: BP 140/68; TEMP 97.5
--- NOTE | 2020-06-20 14:06 | P.DS ---
Discharge Date: 06/20/20 Primary Care Provider: Debi Disposition: ROUTINE DISCHARGE Discharge Condition: GOOD Reason for Admission: AMS, hematuria Consultations: Neurology - Problems (1) Anemia associated with acute blood loss Status: Acute (2) Hematuria Status: Acute Qualifiers: Hematuria type: gross Qualified Code(s): R31.0 - Gross hematuria (3) Alzheimer's dementia Status: Chronic Qualifiers: Alzheimer's disease onset: unspecified onset Dementia behavioral disturbance: with behavioral disturbance Qualified Code(s): G30.9 - Alzheimer's disease, unspecified; F02.81 - Dementia in other diseases classified elsewhere with behavioral disturbance Brief History of Present Illness: Mr. Anguiano is an 80 yo male with a pacemaker, Alzheimer's disease and history of colon cancer here today for AMS. Recently, he has been entering the neighbor's house at night and has been found walking around on the road at night. His reports this started on Wednesday, but that he has been declining for years. Symptoms are worse at night. His called Dr. Carrera (PCP, Neuro) and he told them to come to the ER. He is able to tell me his full name, birthday, his 's name, that he is in a hospital, and that he is in the state of [place]. He cannot tell me the year or city. CXR shows no acute intrathoracic process. CT Head shows no acute intracranial abnormality, advanced brain atrophy. Additionally, he has been having gross painless hematuria. He is a former smoker. Urine positive for ketones 4+, blood 3+, and protein 2+. CT shows soft tissue density material within the urinary bladder may represent blood clot or mass. Cystoscopy followup advised. Hospital Course: Plan was to do bladder irrigation; however, patient refused. Patient was weak and confused and not safe to go home. We arranged for placement at a nursing home facility. Hopefully, patient continues to improve it could possibly be discharged back home. If he is not able to then he will need to become a resident at the nursing facility. Vital Signs/Physical Exam: Temp Pulse Resp BP Pulse Ox 97.5 F 66 18 140/68 0 L 06/20/20 12:00 06/20/20 12:00 06/20/20 12:00 06/20/20 12:00 06/20/20 12:00 General: Alert, In no apparent distress, Demented Laboratory Data at Discharge: WBC 4.20 K/uL (4.3-10.9) L D 06/19/20 05:14 Hgb 12.1 g/dL (13.6-17.9) L 06/19/20 05:14 Hct 34.9 % (39.6-49.0) L 06/19/20 05:14 Plt Count 147 K/uL (152-406) L 06/19/20 05:14 PT 13.1 SECONDS (9.5-12.5) H 06/18/20 19:40 INR 1.14 06/18/20 19:40 Sodium 142 mmol/L (136-145) 06/19/20 05:14 Potassium 4.0 mmol/L (3.5-5.1) 06/19/20 13:39 BUN 19 mg/dL (7-18) H 06/19/20 05:14 Creatinine 0.59 mg/dL (0.55-1.3) 06/19/20 05:14 Glucose 73 mg/dL (74-106) L 06/19/20 05:14 Phosphorus 2.8 mg/dL (2.5-4.9) 06/19/20 05:14 Magnesium 2.1 mg/dL (1.8-2.4) 06/19/20 05:14 Total Bilirubin 1.1 mg/dL (0.2-1.0) H 06/19/20 05:14 AST 21 U/L (15-37) 06/19/20 05:14 ALT 17 U/L (12-78) 06/19/20 05:14 Alkaline Phosphatase 44 U/L (45-117) L 06/19/20 05:14 Home Medications: Cefdinir [Omnicef] 300 mg PO Q12H #14 capsule 06/20/20 Rivastigmine Patch [Exelon 4.6 mg Patch*] 4.6 mg TD DAILY #30 patch 06/20/20 Temazepam [Restoril*] 15 mg PO BEDTIME PRN PRN #10 cap 06/20/20 New Medications: Rivastigmine Patch [Exelon 4.6 mg Patch*] 4.6 mg TD DAILY #30 patch Cefdinir [Omnicef] 300 mg PO Q12H #14 capsule Temazepam [Restoril*] 15 mg PO BEDTIME PRN PRN #10 cap PRN Reason: Insomnia Physician Discharge Instructions: OK TO DC IV AND to assisted FOLLOW-UP WITH PRIMARY CARE PROVIDER IN 1-2 WEEKS FOLLOW-UP WITH Neurology and Urology in 2-4 weeks RETURN TO THE ER IF symptoms worsen CALL or TEXT DR. CARNEY AT [phone] IF ANY QUESTIONS REGARDING HOSPITAL STAY. PLEASE CALL THE FLOOR AT [phone] IF ANY MEDICATION OR NURSING QUESTIONS. Diet: AHA Activity: Fall precautions Followup: Luis Carrera MD [Primary Care Provider] - Time spent managing pt's care (in minutes): 35
[2020-06-26] MEDS ORDERED: CYANOCOBALAMIN 1000MCG/ML INJ IM SCH (09:00)
== END 2020-06-20 15:07 | disposition home or self-care (01) | DRG 56 ==
LOC: ER 16:44 → ERHOLD 23:11 → 2ND 23:59 → OBSVTOIN 06-19 12:47
PROVIDERS: ADMIT Hospitalist; ATTEND Hospitalist
DX: G30.9 Alzheimer's disease, unspecified (principal); G92 Toxic encephalopathy; F02.81 Dementia in other diseases classified elsewhere, unspecified severity, with behavioral disturbance; D62 Acute posthemorrhagic anemia; E44.1 Mild protein-calorie malnutrition; N30.91 Cystitis, unspecified with hematuria; R31.0 Gross hematuria; Z68.20 Body mass index [BMI] 20.0-20.9, adult; Z85.038 Personal history of other malignant neoplasm of large intestine; Z95.0 Presence of cardiac pacemaker; Z91.14 Patient's other noncompliance with medication regimen; Z87.891 Personal history of nicotine dependence; Z20.822 Contact with and (suspected) exposure to COVID-19
CPT/HCPCS: 36415; 70450; 71045; 74177; 80048; 80053; 80076; 81003; 82607; 83735; 83880; 84100; 84132; 84439; 84443; 84484; 85025; 85610; 87086; 87088; 90732; 93005; 94760; 96365; 96366; 97161; 99285; G0378; J0696; J1650; J3420; J7030; Q9967; U0003

== ENCOUNTER 2020-07-23 10:54 | Emergency (ER) | payer OTHER ==
--- NOTE | 2020-07-23 11:31 | RAD REPORT ---
EXAM DESCRIPTION: CT - Head Brain Wo Cont - 07/23/2020 11:06 am CLINICAL HISTORY: Fall. Head injury COMPARISON: 2017 TECHNIQUE: Computed axial tomography of the head was obtained. IV contrast was not requested. All CT scans are performed using dose optimization technique as appropriate and may include automated exposure control or mA/KV adjustment according to patient size. FINDINGS: Some of the images are degraded by patient motion artifact An intracranial bleed is not seen . Dilatation of the ventricles has progressed since 2017 and is [id number]. There is prominent cerebral atrophy present. No extra-axial fluid collection is noted. Fluid within the sinuses/ mastoids is not seen. IMPRESSION: Moderate to marked dilatation of the ventricles has progressed since 2017. 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 Another consideration is that this is secondary to white matter a trophy.
--- NOTE | 2020-07-23 11:38 | RAD REPORT ---
EXAM DESCRIPTION: CT - C Spine Wo Con - 07/23/2020 11:11 am CLINICAL HISTORY: Neck injury status post fall. Neck pain COMPARISON: None. TECHNIQUE: Computed axial tomography of the cervical spine were obtained with sagittal and coronal r econstruction images generated and reviewed. All CT scans are performed using dose optimization technique as appropriate and may include automated exposure control or mA/KV adjustment according to patient size. FINDINGS: A cervical fracture is not seen. No dislocation. Prominent osteophytes bridge C2 through C5 anteriorly. IMPRESSION: A cervical fracture is not seen. If the patient continues have symptoms to suggest spinal cord/spinal canal pathology then MRI would b e recommended.
[2020-07-23] MEDS ORDERED: LIDOCAINE 1% MPF 30 ML VIAL ONE (13:55)
--- NOTE | 2020-07-23 14:00 | ER ---
Nurse's Notes [facility] Name: Stewart Anguiano Age: 80 yrs Sex: Male : 1940 Arrival Date: 07/23/2020 Time: 10:57 Bed 5 Private MD: Diagnosis: Superficial injury of head;Laceration without foreign body of scalp Presentation: 07/23 10:57 Chief complaint: EMS states: "Pt fell while on the way to the cafeteria. laceration jd3 noted to the left side of head. pt with history of Alzheimer's. pt denies pain other than at the site of the laceration.". Coronavirus screen: At this time, the client does not indicate any symptoms associated with coronavirus-19. Ebola Screen: Patient negative for fever greater than or equal to 101.5 degrees Fahrenheit, and additional compatible Ebola Virus Disease symptoms. Initial Sepsis Screen: Does the patient meet any 2 criteria? No. Patient's initial sepsis screen is negative. Does the patient have a suspected source of infection? No. Patient's initial sepsis screen is negative. Risk Assessment: Do you want to hurt yourself or someone else? Patient reports no desire to harm self or others. Onset of symptoms was July 23, 2020. 10:57 Method Of Arrival: EMS: [facility] jd3 10:57 Acuity: [id number] 3 jd3 11:08 Care prior to arrival: dressing applied to laceration. Mechanism of Injury: Fall from jd3 standing position. Trauma event details: Injury occurred in the [facility], Injury occurred: in an institution. Injury occurred: July 23, 2020. Trauma Activation: Alert Physician: ED Physician; Name: Dr. Melo; Notified At: 10:57; Arrived At: 10:57 Physician: General Surgeon; Name: ; Notified At: 10:57; Arrived At: Physician: Radiology; Name: ; Notified At: 10:57; Arrived At: Physician: Respiratory; Name: ; Notified At: 10:57; Arrived At: Physician: Lab; Name: ; Notified At: 10:57; Arrived At: Historical: - Allergies: 11:07 No Known Allergies; jd3 - Home Meds: 11:07 Depakote 125 mg Oral TbEC 2 tabs once daily [Active]; Depakote 250 mg Oral TbEC 1 tab jd3 nightly [Active]; Exelon Oral [Active]; hydrochlorothiazide 25 mg Oral tab 1 tab once daily [Active]; trazodone 50 mg Oral tab 1 tab nightly [Active]; Zinc Sulfate Oral 1 tab daily [Active]; - PMHx: 11:07 colon cancer; jd3 - 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 - Social history:: Smoking status: Patient/guardian denies using tobacco, but has a distant history of tobacco abuse. - Immunization history: Last tetanus immunization: unknown. - Family history:: not pertinent. - Hospitalizations: : No recent hospitalization is reported. Screenin:12 Abuse screen: Denies threats or abuse. Nutritional screening: No deficits noted. jd3 Tuberculosis screening: No symptoms or risk factors identified. 11:14 Fall Risk Fall in past 12 months (25 points). Mental Status- Oriented to own ability (0 jd3 pts). Total Coles Fall Scale indicates Low Risk Score (25-44 pts). Fall prevention measures have been instituted. Side Rails Up X 2 Placed close to Nursing Station Frequent Obs/Assesments occuring. Primary Survey: 11:08 NO uncontrolled hemorrhage observed. A: The patient is alert. Airway: patent, No jd3 supplemental oxygen in use on arrival. Oral cavity: clear, Trachea midline. Breathing/Chest: Respiratory pattern: regular, Respiratory effort: spontaneous, unlabored, Chest inspection: symmetrical rise and fall of the chest. Circulation: Skin color: pink, Skin temperature: warm. Disability Alert. Exposure/Environment: All clothing and personal items were removed. Forensic evidence collection is not deemed to be indicated at this time. Items placed in patient belonging bag. There is no evidence of uncontrolled external bleeding. Obvious injury(ies) are noted at this time: small laceration noted to left side of forehead A warming method has been applied: A warm blanket has been provided to the patient. 11:44 Reassessment Airway Airway Patent Oxygen No O2 Breathing/Chest Respiratory pattern jd3 Regular Respiratory effort Spontaneous Unlabored Chest inspection Symmetrical Circulation Pulses Palpable Color [place] Temperature Warm Disability Alert. Secondary Survey: 11:08 HEENT: Head Other laceration noted to left side of forehead. Gastrointestinal: Abdomen jd3 is soft, non-distended, Palpation No deficit noted. : No signs and/or symptoms were reported regarding the genitourinary system. Musculoskeletal: Circulation, motion, and sensation intact. Range of motion: intact in all extremities. Assessment: 11:12 General: Appears in no apparent distress. comfortable, Behavior is calm, cooperative, jd3 appropriate for age. Pain: Complains of pain in left side of forehead Quality of pain is described as aching, tender. Neuro: Level of Consciousness is awake, alert, obeys commands, confused, Oriented to person, place, situation. Cardiovascular: Denies chest pain, Capillary refill < 3 seconds Patient's skin is warm and dry. Respiratory: Airway is patent Respiratory effort is even, unlabored, Respiratory pattern is regular, symmetrical, Denies cough, shortness of breath. GI: No signs and/or symptoms were reported involving the gastrointestinal system. : No signs and/or symptoms were reported regarding the genitourinary system. EENT: No signs and/or symptoms were reported regarding the EENT system. Derm: Skin is intact, Skin is dry, Skin is normal, Skin temperature is warm Wound noted left side of forehead Wound is laceration noted. bleeding stopped prior to pt arrival to ER. Musculoskeletal: Circulation, motion, and sensation intact. Range of motion: intact in all extremities. 12:39 Reassessment: Patient appears in no apparent distress at this time. No changes from jd3 previously documented assessment. Patient and/or family updated on plan of care and expected duration. Pain level reassessed. Patient denies pain at this time. Patient states feeling better. 13:42 Reassessment: Patient appears in no apparent distress at this time. No changes from jd3 previously documented assessment. Patient and/or family updated on plan of care and expected duration. Pain level reassessed. Sae ROSS at bedside with laceration repair Patient denies pain at this time. 14:54 Reassessment: Patient appears in no apparent distress at this time. No changes from jd3 previously documented assessment. Patient and/or family updated on plan of care and expected duration. Pain level reassessed. [facility] notified of discharge, nurse busy, was told she will call back. 15:04 Reassessment: Patient appears in no apparent distress at this time. No changes from [facility] previously documented assessment. Patient and/or family updated on plan of care and expected duration. Pain level reassessed. report given to [facility] at [facility] for pt report/discharge. [facility] to send transportation Patient states feeling better. Vital Signs: 11:07 BP 119 / 99; Pulse 78; Resp 16 S; Temp 97.4(TE); Pulse Ox 99% on R/A; Weight 68.04 kg jd3 (R); Height 5 ft. 9 in. (175.26 cm) (R); Pain 3/10; 11:44 BP 114 / 78; Pulse 77; Resp 16 S; Pulse Ox 95% on R/A; jd3 12:38 BP 102 / 54; Pulse 73; Resp 16 S; Pulse Ox 100% on R/A; jd3 13:44 BP 106 / 79; Pulse 79; Resp 16 S; Pulse Ox 97% on R/A; jd3 14:55 BP 110 / 80; Pulse 76; Resp 16 S; Pulse Ox 97% on R/A; jd3 11:07 Body Mass Index 22.15 (68.04 kg, 175.26 cm) j Joe Coma Score: 11:08 Eye Response: spontaneous(4). Verbal Response: confused(4). Motor Response: obeys jd3 commands(6). Total: 14. 11:41 Eye Response: spontaneous(4). Verbal Response: oriented(5). Motor Response: obeys rn commands(6). Total: 15. 11:44 Eye Response: spontaneous(4). Verbal Response: confused(4). Motor Response: obeys jd3 commands(6). Total: 14. 13:56 Eye Response: spontaneous(4). Verbal Response: oriented(5). Motor Response: obeys rn commands(6). Total: 15. 14:55 Eye Response: spontaneous(4). Verbal Response: confused(4). Motor Response: obeys jd3 commands(6). Total: 14. Trauma Score (Adult): 11:08 Eye Response: spontaneous(1); Verbal Response: confused(1); Motor Response: obeys jd3 commands(2); Systolic BP: > 89 mm Hg(4); Respiratory Rate: 10 to 29 per min(4); Swisher Score: 14; Trauma Score: 12 11:44 Eye Response: spontaneous(1); Verbal Response: confused(1); Motor Response: obeys jd3 commands(2); Systolic BP: > 89 mm Hg(4); Respiratory Rate: 10 to 29 per min(4); Joe Score: 14; Trauma Score: 12 14:55 Eye Response: spontaneous(1); Verbal Response: confused(1); Motor Response: obeys jd3 commands(2); Systolic BP: > 89 mm Hg(4); Respiratory Rate: 10 to 29 per min(4); Swisher Score: 14; Trauma Score: 12 ED Course: 10:57 Patient arrived in ED. jd3 10:58 Alin Melo MD is Attending Physician. rn 11:02 Triage completed. jd3 11:05 CT Head Brain wo Cont In Process Unspecified. EDMS 11:08 Arm band placed on. jd3 11:11 C Spine Wo Con In Process Unspecified. EDMS 11:12 Patient maintains SpO2 saturation greater than 95% on room air. jd3 11:14 Patient has correct armband on for positive identification. Placed in gown. Bed in low jd3 position. Call light in reach. Side rails up X2. personnel monitor on. Pulse ox on. NIBP on. 11:14 Thermoregulation: warm blanket given to patient. jd3 11:39 Kenny Tolentino, RN is Primary Nurse. jd3 13:43 Assist provider with laceration repair on left side of forehead that was between 2.6 to jd3 7.5 cm using sutures. Set up tray. Performed by Sae ROSS Dressed with 4X4s, Patient tolerated well. 14:54 Wound care: to laceration located on forehead was cleaned with soap and water, dressed mh5 with 4X4s, Pneumatic tourniquet applied. 15:06 Patient did not have IV access during this emergency room visit. jd3 Administered Medications: 13:40 Drug: Lidocaine (1 %) 1 vials Volume: 20 ml; Route: Infiltration; jd3 Intake: 15:05 PO: 300ml (Water); Total: 300ml. jd3 Output: 15:05 Urine: 300ml (Voided); Total: 300ml. jd3 Outcome: 13:59 Discharge ordered by . rn 15:05 Condition: stable jd3 15:05 Patient's length of stay in the Emergency Department was greater than 2 hours. due to jd3 waiting for laceration repair.Patient's length of stay extended due to 15:24 Discharged to snf. Report called to [facility] TO [facility] 15:24 Discharge instructions given to snf, Instructed on discharge instructions, follow up and referral plans. wound care, Demonstrated understanding of instructions, follow-up care, wound care. 15:25 Patient left the ED. bp Signatures: Dispatcher [employer] EDMS Alin Melo MD MD rn Martinez, Maria 5 Kenny Tolentino RN RN jd3 Peltier, Brian, RN RN bp Corrections: (The following items were deleted from the chart) 12:03 12:02 Assist provider with laceration repair on left side of forehead that was between jd3 2.6 to 7.5 cm using ankita. Set up tray. Performed by Alin Melo MD Dressed with 4X4s, Patient tolerated well. jd3 15:08 15:04 Reassessment: Patient appears in no apparent distress at this time. No changes jd3 from previously documented assessment. Patient and/or family updated on plan of care and expected duration. Pain level reassessed. report given to Johana [facility] at [facility] for pt report/discharge. Patient states feeling better. jd3
--- NOTE | 2020-07-23 14:00 | EDPHYS ---
Physician Documentation [facility] Name: Stewart Anguiano Age: 80 yrs Sex: Male : 1940 Arrival Date: 07/23/2020 Time: 10:57 Bed 5 Private MD: ED Physician Alin Melo HPI: 07/23 11:41 This 80 yrs old Male presents to ER via EMS with complaints of head injury. rn 11:41 The patient or guardian reports injury, a laceration, pain. The complaints affect the rn forehead. Onset: The symptoms/episode began/occurred just prior to arrival. Associated signs and symptoms: Loss of consciousness: This patient did not experience any loss of consciousness. Pertinent positives: headache, Pertinent negatives: the patient has not experienced a loss of conciousness, biting tongue, dazed, double vision, incontinence, seizure, shortness of breath, vomiting. Severity of symptoms: At their worst the symptoms were mild, in the emergency department the symptoms are unchanged. The patient has not experienced similar symptoms in the past. The patient has not recently seen a physician. Reports fell, not sure if tripped or slipped, hit head on floor, reports mild headache and mild neck pain, no extremity injury, remembers all events, not on blood thinners. . Historical: - Allergies: 11:07 No Known Allergies; jd3 - Home Meds: 11:07 Depakote 125 mg Oral TbEC 2 tabs once daily [Active]; Depakote 250 mg Oral TbEC 1 tab jd3 nightly [Active]; Exelon Oral [Active]; hydrochlorothiazide 25 mg Oral tab 1 tab once daily [Active]; trazodone 50 mg Oral tab 1 tab nightly [Active]; Zinc Sulfate Oral 1 tab daily [Active]; - PMHx: 11:07 colon cancer; jd3 - 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 - Social history:: Smoking status: Patient/guardian denies using tobacco, but has a distant history of tobacco abuse. - Immunization history: Last tetanus immunization: unknown. - Family history:: not pertinent. - Hospitalizations: : No recent hospitalization is reported. ROS: 11:41 Constitutional: Negative for fever, chills, and weight loss, Eyes: Negative for injury, rn pain, redness, and discharge, Neck: Negative for swelling, Cardiovascular: Negative for chest pain, palpitations, and edema, Respiratory: Negative for shortness of breath, cough, wheezing, and pleuritic chest pain, Abdomen/GI: Negative for abdominal pain, nausea, vomiting, diarrhea, and constipation, Back: Negative for injury and pain, : Negative for injury, bleeding, discharge, and swelling, MS/Extremity: Negative for injury and deformity, Skin: Negative for injury, rash, and discoloration, Neuro: Negative for weakness, numbness, tingling, and seizure. Exam: 11:41 Constitutional: This is a well developed, well nourished patient who is awake, alert, rn and in no acute distress. Head/Face: Normocephalic, + 3mc irregular superficial laceration left forehead, no active bleeding, no foreign body. Eyes: Pupils equal round and reactive to light, extra-ocular motions intact. Periorbital areas with no swelling, redness, or edema. Neck: no midline tenderness Chest/axilla: Normal chest wall appearance and motion. Nontender with no deformity. No lesions are appreciated. Cardiovascular: Regular rate and rhythm. No pulse deficits. Respiratory: No increased work of breathing, no retractions or nasal flaring. Abdomen/GI: Soft, non-tender Back: No spinal tenderness. No costovertebral tenderness. Full range of motion. MS/ Extremity: Pulses equal, no cyanosis. Neurovascular intact. Full, normal range of motion. Equal circumference. Neuro: Awake and alert, GCS 15, oriented to person, place, and situation. Cranial nerves II-XII grossly intact. Motor strength 5/5 in all extremities. Sensory grossly intact. Vital Signs: 11:07 BP 119 / 99; Pulse 78; Resp 16 S; Temp 97.4(TE); Pulse Ox 99% on R/A; Weight 68.04 kg jd3 (R); Height 5 ft. 9 in. (175.26 cm) (R); Pain 3/10; 11:44 BP 114 / 78; Pulse 77; Resp 16 S; Pulse Ox 95% on R/A; jd3 12:38 BP 102 / 54; Pulse 73; Resp 16 S; Pulse Ox 100% on R/A; jd3 13:44 BP 106 / 79; Pulse 79; Resp 16 S; Pulse Ox 97% on R/A; jd3 14:55 BP 110 / 80; Pulse 76; Resp 16 S; Pulse Ox 97% on R/A; jd3 11:07 Body Mass Index 22.15 (68.04 kg, 175.26 cm) jd3 Joe Coma Score: 11:08 Eye Response: spontaneous(4). Verbal Response: confused(4). Motor Response: obeys jd3 commands(6). Total: 14. 11:41 Eye Response: spontaneous(4). Verbal Response: oriented(5). Motor Response: obeys rn commands(6). Total: 15. 11:44 Eye Response: spontaneous(4). Verbal Response: confused(4). Motor Response: obeys jd3 commands(6). Total: 14. 13:56 Eye Response: spontaneous(4). Verbal Response: oriented(5). Motor Response: obeys rn commands(6). Total: 15. 14:55 Eye Response: spontaneous(4). Verbal Response: confused(4). Motor Response: obeys jd3 commands(6). Total: 14. Trauma Score (Adult): 11:08 Eye Response: spontaneous(1); Verbal Response: confused(1); Motor Response: obeys jd3 commands(2); Systolic BP: > 89 mm Hg(4); Respiratory Rate: 10 to 29 per min(4); Joe Score: 14; Trauma Score: 12 11:44 Eye Response: spontaneous(1); Verbal Response: confused(1); Motor Response: obeys jd3 commands(2); Systolic BP: > 89 mm Hg(4); Respiratory Rate: 10 to 29 per min(4); Sunspot Score: 14; Trauma Score: 12 14:55 Eye Response: spontaneous(1); Verbal Response: confused(1); Motor Response: obeys jd3 commands(2); Systolic BP: > 89 mm Hg(4); Respiratory Rate: 10 to 29 per min(4); Joe Score: 14; Trauma Score: 12 Laceration: 13:56 Wound Repair of 2cm ( 0.8in ) subcutaneous laceration to left side of forehead. Distal rn neuro/vascular/tendon intact. Anesthesia: Wound infiltrated with 3 mls of 1% lidocaine. Wound prep: Extensive cleansing, Wound explored, Copious irrigation. Skin closed with 2 5-0 Prolene using interrupted sutures and sterile technique. Dressed with 4x4's. Patient tolerated well. MDM: 10:58 Patient medically screened. rn 13:56 Differential diagnosis: Contusion of Hematoma on Laceration of Intracranial bleed- rn Concussion cerebral contusion. Data reviewed: vital signs, nurses notes, radiologic studies, CT scan, and as a result, I will discharge patient. Counseling: I had a detailed discussion with the patient and/or guardian regarding: the historical points, exam findings, and any diagnostic results supporting the discharge/admit diagnosis, radiology results, the need for outpatient follow up, to return to the emergency department if symptoms worsen or persist or if there are any questions or concerns that arise at home. Special discussion: Based on the patient's history, exam and DX evaluation, there is no indication for emergent intervention or inpatient TX. It is understood by the patient/guardian that if the SXs persist or worsen they need to return immediately for re-evaluation. I discussed with the patient/guardian in detail that at this point there is no indication for admission to the hospital. It is understood, however, that if the symptoms persist or worsen the patient needs to return immediately for re-evaluation. 07/23 11:01 Order name: CT Head Brain wo Cont; Complete Time: 11:41 rn 07/23 11:08 Order name: C Spine Wo Con; Complete Time: 11:41 EDMS Administered Medications: 13:40 Drug: Lidocaine (1 %) 1 vials Volume: 20 ml; Route: Infiltration; jd3 Disposition: 07/23/20 13:59 Discharged to Home. Impression: Superficial injury of head, Laceration without foreign body of scalp. - Condition is Stable. - Discharge Instructions: Head Injury, Adult, Sutured Wound Care. - Medication Reconciliation Form, Thank You Letter, Antibiotic Education, Prescription Opioid Use form. - Follow up: Private Physician; When: 7 - 10 days; Reason: Recheck today's complaints, Staple/Suture removal, Re-evaluation by your physician. - Problem is new. - Symptoms have improved. Signatures: Dispatcher [employer] EDMS Alin Melo MD MD rn Davies, Jonathon, RN RN jDes Lynn RN RN bp Corrections: (The following items were deleted from the chart) 14:00 13:59 07/23/2020 13:59 Discharged to Home. Impression: Superficial injury of head; rn Laceration without foreign body of scalp. Condition is Stable. Forms are Medication Reconciliation Form, Thank You Letter, Antibiotic Education, Prescription Opioid Use. Follow up: Private Physician; When: As needed; Reason: Recheck today's complaints, Re-evaluation by your physician. Problem is new. Symptoms have improved. rn 15:25 14:00 07/23/2020 13:59 Discharged to Home. Impression: Superficial injury of head; bp Laceration without foreign body of scalp. Condition is Stable. Discharge Instructions: Head Injury, Adult, Sutured Wound Care. Forms are Medication Reconciliation Form, Thank You Letter, Antibiotic Education, Prescription Opioid Use. Follow up: Private Physician; When: 7 - 10 days; Reason: Recheck today's complaints, Staple/Suture removal, Re-evaluation by your physician. Problem is new. Symptoms have improved. rn
[2020-07-23 15:39] VITALS: TEMP 97.4
[2020-07-23 15:45] VITALS: O2SAT 97
[2020-07-23 15:46] VITALS: BP 110/80
== END 2020-07-23 15:25 | disposition home or self-care (01) ==
LOC: ER 10:54
PROC: 0JQ00ZZ Repair Scalp Subcutaneous Tissue and Fascia, Open Approach (ICD-10-PCS; principal; 2020-07-23)
DX: S01.81XA Laceration without foreign body of other part of head, initial encounter (principal); W18.39XA Other fall on same level, initial encounter; Z85.038 Personal history of other malignant neoplasm of large intestine
CPT/HCPCS: 70450; 72125; 99285; G0390

== ENCOUNTER 2020-10-18 14:38 | Emergency (ER) | payer OTHER ==
[2020-10-18 18:14] LABS: Absolute Lymphocytes (CBC) 0.5 K/uL (0.7-4.9); Basophils % 0.3 % (0-1.3); Hematocrit 40.7 % (39.6-49.0); Lymphocytes % 8.6 % (15.3-44.8); MPV 7.5 fL (7.6-11.3); RBC Red Blood Cell Count 4.36 M/uL (4.33-5.43)
[2020-10-18 18:30] LABS: Albumin 3.6 g/dL (3.4-5.0); Bilirubin Direct 0.2 mg/dL (0-0.2); Bilirubin Total 0.6 mg/dL (0.2-1.0); Potassium 3.8 mmol/L (3.5-5.1); Protein, Total 7.8 g/dL (6.4-8.2)
[2020-10-18 19:04] LABS: Protime INR 1.08
--- NOTE | 2020-10-18 19:44 | RAD REPORT ---
EXAM DESCRIPTION: CTAbdomen Pelvis W Contrast - 10/18/2020 7:20 pm CLINICAL HISTORY: Abdominal pain. Abd pain;GI bleed COMPARISON: Abdomen Pelvis W Contrast dated 06/18/2020; Abdomen Pelvis W Contrast dated 05/27/2017; CT ABD PELVIS W CONTRAST dated 08/02/2013 TECHNIQUE: Biphasic CT imaging of the abdomen and pelvis was performed with 100 ml non-ionic IV cont rast. All CT scans are performed using dose optimization technique as appropriate and may include automated exposure control or mA/KV adjustment according to patient size. FINDINGS: The lung bases are clear.Pacemaker wires are present. The liver, spleen, pancreas, adrenal glands and kidneys are within normal limits. Hemicolectomy changes are noted. Irregular rectal wall thickening is seen which is asymmetric, along the right measuring up to 19 mm. The appendix is normal. Soft tissue density is seen within the urina ry bladder, similar to Maria E study. No evidence of significant lymphadenopathy. Aortoiliac atheroscle rosis. No lytic or blastic bone lesion. IMPRESSION: Asymmetric rectal wall thickening measuring up to 19 mm is noted. Suggest direct visuali zation with colonoscopy. Significant soft tissue density is seen within the urinary bladder which is of unclear etiology. Soft tissue masses versus blood clots are possible. Suggest direct visualization with cystoscopy.
--- NOTE | 2020-10-18 21:01 | EDPHYS ---
Physician Documentation [facility] Name: Stewart Anguiano Age: 80 yrs Sex: Male : 1940 Arrival Date: 10/18/2020 Time: 14:52 Bed 3 Private MD: ED Physician Donovan Jiang HPI: 10/18 19:06 This 80 yrs old Male presents to ER via EMS with complaints of Rectal kdr Bleeding. 19:08 The patient presents to the emergency department with bleeding from the rectum/anus, kdr that is mild. 19:08 Sent from the [facility] after they had noted blood in his stool for the last 2 days. kdr The patient himself has no complaints.. Onset: The symptoms/episode began/occurred gradually, 2 day(s) ago. Severity of symptoms: At their worst the symptoms were very mild in the emergency department the symptoms are unchanged. The patient has not experienced similar symptoms in the past. The patient has not recently seen a physician. Historical: - Allergies: 17:36 No Known Allergies; aa5 - Home Meds: 17:35 Depakote 125 mg Oral TbEC 2 tabs once daily [Active]; Depakote 250 mg Oral TbEC 1 tab aa5 nightly [Active]; Exelon Oral [Active]; hydrochlorothiazide 25 mg Oral tab 1 tab once daily [Active]; trazodone 50 mg Oral tab 1 tab nightly [Active]; Zinc Sulfate Oral 1 tab daily [Active]; - PMHx: 17:35 colon cancer; aa5 ROS: 19:08 Constitutional: Negative for fever, chills, and weight loss, Eyes: Negative for injury, kdr pain, redness, and discharge, ENT: Negative for injury, pain, and discharge, Neck: Negative for injury, pain, and swelling, Cardiovascular: Negative for chest pain, palpitations, and edema, Respiratory: Negative for shortness of breath, cough, wheezing, and pleuritic chest pain, Back: Negative for injury and pain, : Negative for injury, bleeding, discharge, and swelling, MS/Extremity: Negative for injury and deformity, Skin: Negative for injury, rash, and discoloration, Neuro: Negative for headache, weakness, numbness, tingling, and seizure activity. Psych: Negative for depression, anxiety, suicide ideation, homicidal ideation, and hallucinations, Allergy/Immunology: Negative for hives, rash, and allergies, Endocrine: Negative for neck swelling, polydipsia, polyuria, polyphagia, and marked weight changes, Hematologic/Lymphatic: Negative for swollen nodes, abnormal bleeding, and unusual bruising. 19:08 Abdomen/GI: Positive for abdominal pain, rectal bleeding, Negative for nausea and vomiting, abdominal distension, dysphagia, hematemesis, black/tarry stool. Exam: 19:08 Constitutional: This is a well developed, well nourished patient who is awake, alert, kdr and in no acute distress. Head/Face: Normocephalic, atraumatic. Eyes: Pupils equal round and reactive to light, extra-ocular motions intact. Lids and lashes normal. Conjunctiva and sclera are non-icteric and not injected. Cornea within normal limits. Periorbital areas with no swelling, redness, or edema. Neck: Trachea midline, no thyromegaly or masses palpated, and no cervical lymphadenopathy. Supple, full range of motion without nuchal rigidity, or vertebral point tenderness. No Meningismus. Chest/axilla: Normal chest wall appearance and motion. Nontender with no deformity. No lesions are appreciated. Cardiovascular: Regular rate and rhythm with a normal S1 and S2. No gallops, murmurs, or rubs. Normal PMI, no JVD. No pulse deficits. Respiratory: Lungs have equal breath sounds bilaterally, clear to auscultation and percussion. No rales, rhonchi or wheezes noted. No increased work of breathing, no retractions or nasal flaring. Back: No spinal tenderness. No costovertebral tenderness. Full range of motion. Skin: Warm, dry with normal turgor. Normal color with no rashes, no lesions, and no evidence of cellulitis. MS/ Extremity: Pulses equal, no cyanosis. Neurovascular intact. Full, normal range of motion. Neuro: Awake and alert, GCS 15, oriented to person, place, time, and situation. Cranial nerves II-XII grossly intact. Motor strength 5/5 in all extremities. Sensory grossly intact. Cerebellar exam normal. Normal gait. Psych: Awake, alert, with orientation to person, place and time. Behavior, mood, and affect are within normal limits. 19:08 Abdomen/GI: Inspection: scar(s), Patient was moderately cachectic, Bowel sounds: normal, Palpation: soft, mild abdominal tenderness, in the abdomen diffusely, Rectal exam: Prostate: normal, rectal tone normal, Stool: guaiac positive, fecal impaction, is not appreciated. Vital Signs: 15:09 BP 103 / 75; Pulse 93; Resp 20; Temp 98.1(O); Pulse Ox 99% on R/A; Weight 54.43 kg (R); kg Height 6 ft. 0 in. (182.88 cm) (R); 17:06 BP 138 / 77 RA Sitting (auto/reg); Pulse 72 RA; Pulse Ox 99% on R/A; mb4 19:00 BP 139 / 70; Pulse 86; Resp 18; Pulse Ox 98% ; hb 20:00 BP 114 / 77; Pulse 83; Resp 18; Pulse Ox 99% on R/A; jb4 21:00 BP 118 / 75; Pulse 80; Resp 18; Pulse Ox 97% on R/A; lp1 22:00 BP 117 / 69; Pulse 77; Resp 20; Pulse Ox 100% on R/A; lp1 23:00 BP 143 / 92; Pulse 79; Resp 17; Pulse Ox 97% on R/A; lp1 15:09 Body Mass Index 16.27 (54.43 kg, 182.88 cm) kg MDM: 19:08 Data reviewed: vital signs, nurses notes, lab test result(s), radiologic studies. kdr Counseling: I had a detailed discussion with the patient and/or guardian regarding: the historical points, exam findings, and any diagnostic results supporting the discharge/admit diagnosis, lab results, radiology results. 21:00 Patient medically screened. kdr 10/18 17:45 Order name: Basic Metabolic Panel; Complete Time: 19:05 kdr 10/18 17:45 Order name: CBC with Diff; Complete Time: 18:19 kdr 10/18 17:45 Order name: Hepatic Function; Complete Time: 19:05 kdr 10/18 17:45 Order name: Lipase; Complete Time: 19:05 kdr 10/18 17:45 Order name: Type And Screen; Complete Time: 19:05 kdr 10/18 18:14 Order name: PT-INR; Complete Time: 19:28 la1 10/18 18:14 Order name: Ptt, Activated; Complete Time: 19:28 la1 10/18 19:06 Order name: Hemoglobin; Complete Time: 20:41 kdr 10/18 19:07 Order name: CT Abd/Pelvis - IV Contrast Only; Complete Time: 20:11 kdr 10/18 19:40 Order name: SARS-COV-2 RT PCR; Complete Time: 19:42 EDMS 10/18 21:28 Order name: ABO/RH no charge EDMS 10/18 17:45 Order name: IV Saline Lock; Complete Time: 18:04 kdr 10/18 17:45 Order name: Labs collected and sent; Complete Time: 18:04 kdr Administered Medications: 23:33 Not Given (Patient Refused): Ciprofloxacin 500 mg PO once lp1 23:34 Not Given (Patient Refused): metroNIDAZOLE 500 mg PO once lp1 Disposition Summary: 10/18/20 21:00 Discharge Ordered Location: Home kdr Problem: new kdr Symptoms: are unchanged kdr Condition: Stable kdr Diagnosis - Left sided colitis with rectal bleeding kdr Followup: kdr - With: Private Physician - When: 2 - 3 days - Reason: If symptoms return, Further diagnostic work-up, Recheck today's complaints, Continuance of care, Re-evaluation by your physician Followup: kdr - With: Rafita Leonardo MD - When: 2 - 3 days - Reason: If symptoms return, Further diagnostic work-up, Recheck today's complaints, Continuance of care, Re-evaluation by your physician Discharge Instructions: - Discharge Summary Sheet kdr - Rectal Bleeding, [id number] kdr Forms: - Medication Reconciliation Form kdr - Thank You Letter kdr Prescriptions: - Cipro 500 mg Oral Tablet - take 1 tablet by ORAL route every 12 hours for 10 days; 20 tablet; Refills: 0, cp Product Selection Permitted - Metronidazole 500 mg Oral Tablet - take 1 tablet by ORAL route every 8 hours; 30 tablet; Refills: 0, Product cp Selection Permitted Signatures: Dispatcher [employer] EDMS Israel Cortes MD MD pkl Rittger, Kevin, MD MD kdr Marisa Dennison RN RN aa5 Gustabo Prescott, GRAPE CRUSHER-C GRAPE CRUSHER-Cla1 Damián Bhatt PA PA cp Pena, Laura RN lp1 Corrections: (The following items were deleted from the chart) 18:43 18:05 CORONAVIRUS+ ordered. EDMS EDMS
--- NOTE | 2020-10-18 21:01 | ER ---
Nurse's Notes [facility] Name: Stewart Anguiano Age: 80 yrs Sex: Male : 1940 Arrival Date: 10/18/2020 Time: 14:52 Bed 3 Private MD: Diagnosis: Left sided colitis with rectal bleeding Presentation: 10/18 15:09 Chief complaint: EMS states: Rectal bleeding x 2 days. Coronavirus screen: Client kg denies travel out of the [place] in the last 14 days. At this time, unable to obtain information related to travel outside the [place] At this time, the client does not indicate any symptoms associated with coronavirus-19. Ebola Screen: Patient negative for fever greater than or equal to 101.5 degrees Fahrenheit, and additional compatible Ebola Virus Disease symptoms Patient denies exposure to infectious person. Patient denies travel to an Ebola-affected area in the 21 days before illness onset. Onset of symptoms was October 16, 2020. 15:09 Method Of Arrival: EMS: [facility] kg 15:09 Acuity: RAJEEV 3 kg 17:36 Initial Sepsis Screen: Does the patient meet any 2 criteria? No. Patient's initial aa5 sepsis screen is negative. Does the patient have a suspected source of infection? No. Patient's initial sepsis screen is negative. Risk Assessment: Do you want to hurt yourself or someone else? Patient reports no desire to harm self or others. Historical: - Allergies: 17:36 No Known Allergies; aa5 - Home Meds: 17:35 Depakote 125 mg Oral TbEC 2 tabs once daily [Active]; Depakote 250 mg Oral TbEC 1 tab aa5 nightly [Active]; Exelon Oral [Active]; hydrochlorothiazide 25 mg Oral tab 1 tab once daily [Active]; trazodone 50 mg Oral tab 1 tab nightly [Active]; Zinc Sulfate Oral 1 tab daily [Active]; - PMHx: 17:35 colon cancer; aa5 Screenin:04 Abuse screen: Denies threats or abuse. Denies injuries from another. Nutritional iw screening: No deficits noted. Tuberculosis screening: No symptoms or risk factors identified. Fall Risk Fall in past 12 months (25 points). Assessment: 18:03 General: Appears uncomfortable, ill, Behavior is anxious. Neuro: Level of Consciousness iw is awake, alert, confused. Respiratory: Respiratory effort is even, unlabored, Respiratory pattern is regular, symmetrical. 18:12 Reassessment: [place] [phone]. hb 19:00 Reassessment: Patient and/or family updated on plan of care and expected duration. Pain jb4 level reassessed. Pt is resting in bed with eyes closed, respirations are even and unlabored with no s/s of pain or distress noted. 20:00 Reassessment: Patient appears in no apparent distress at this time. No changes from jb4 previously documented assessment. Patient and/or family updated on plan of care and expected duration. Pain level reassessed. 21:43 Reassessment: Spoke with SHAILA Garza from [facility] about patient for lp1 discharge and results. 22:30 General: Appears in no apparent distress. Behavior is quiet. Pain: Denies pain. Neuro: lp1 Level of Consciousness is awake, obeys commands, confused, Oriented to person, place. Cardiovascular: Patient's skin is warm and dry. Respiratory: Respiratory effort is even, unlabored. GI: Abdomen is flat, Abd is soft and non tender X 4 quads. : No signs and/or symptoms were reported regarding the genitourinary system. EENT: No signs and/or symptoms were reported regarding the EENT system. Derm: Skin is fragile, is thin, Skin is dry, Skin is normal. Musculoskeletal: No deficits noted. 23:30 Reassessment: Patient appears in no apparent distress at this time. Patient appears lp1 confused; refusing to take PO meds, reports "I Don't think my doctor would like me taking medication he does not know about"; attempted to have patient take PO meds but unsuccessful; [facility] at bedside for transfer back to [place]. Vital Signs: 15:09 BP 103 / 75; Pulse 93; Resp 20; Temp 98.1(O); Pulse Ox 99% on R/A; Weight 54.43 kg (R); kg Height 6 ft. 0 in. (182.88 cm) (R); 17:06 BP 138 / 77 RA Sitting (auto/reg); Pulse 72 RA; Pulse Ox 99% on R/A; mb4 19:00 BP 139 / 70; Pulse 86; Resp 18; Pulse Ox 98% ; hb 20:00 BP 114 / 77; Pulse 83; Resp 18; Pulse Ox 99% on R/A; jb4 21:00 BP 118 / 75; Pulse 80; Resp 18; Pulse Ox 97% on R/A; lp1 22:00 BP 117 / 69; Pulse 77; Resp 20; Pulse Ox 100% on R/A; lp1 23:00 BP 143 / 92; Pulse 79; Resp 17; Pulse Ox 97% on R/A; lp1 15:09 Body Mass Index 16.27 (54.43 kg, 182.88 cm) kg ED Course: 14:52 Patient arrived in ED. as 15:10 Triage completed. kg 16:08 Donovan Jiang MD is Attending Physician. kdr 17:09 Safety checks: Family/friend present: yes. Family/friends encouraged to stay with mb4 patient. Bed in low position. Call light in reach. Side rails up X2. Door closed. Noise minimized. Pulse ox on. NIBP on. 17:15 Warm blanket given. mb4 18:03 Clotilde Muse, RN is Primary Nurse. iw 18:03 Initial lab(s) drawn, by pr, sent to lab. Inserted saline lock: 20 gauge in right iw antecubital area, using aseptic technique. Blood collected. 19:20 CT Abd/Pelvis - IV Contrast Only In Process Unspecified. EDMS 21:00 Rafita Leonardo MD is Referral Physician. kdr 23:36 No provider procedures requiring assistance completed. IV discontinued, No lp1 redness/swelling at site. Pressure dressing applied. Administered Medications: 23:33 Not Given (Patient Refused): Ciprofloxacin 500 mg PO once lp1 23:34 Not Given (Patient Refused): metroNIDAZOLE 500 mg PO once lp1 Outcome: 21:00 Discharge ordered by . kdr 23:37 Discharged to home via ambulance. lp1 23:37 Condition: stable 23:37 Discharge instructions given to [facility], Instructed on discharge instructions, follow up and referral plans. medication usage, Demonstrated understanding of instructions, follow-up care, medications. 23:37 Patient left the ED. lp1 Signatures: Dispatcher [employer] EDWY Donovan Jiang MD MD kdr Kristina Martinez as Clotilde Muse, YENIFER RN Marisa Dennison RN RN aa5 Ronda Swan RN RN lp1 Anabelle Rojo, RN RN hb Fran Cancino, RN RN jb4 Lona Rojo mb4 Kristen Covington, RN RN kg
[2020-10-18] MEDS ORDERED: CIPROFLOXACIN HCL 500 MG TAB ONE (23:33)
[2020-10-18] MEDS ORDERED: metroNIDAZOLE 500 MG TABLET ONE (23:33)
[2020-10-19 01:00] VITALS: BP 143/92; O2SAT 97
[2020-10-19 01:36] VITALS: TEMP 98.1
== END 2020-10-18 23:37 | disposition home or self-care (01) ==
LOC: ER 14:38
DX: K51.511 Left sided colitis with rectal bleeding (principal); Z85.038 Personal history of other malignant neoplasm of large intestine; Z20.822 Contact with and (suspected) exposure to COVID-19
CPT/HCPCS: 85025; 80048; 36415; 86900; 86850; 85610; 86901; 80076; 85730; 85018; 83690; 74177; 99284; U0003; Q9967

== ENCOUNTER 2020-10-19 13:41 | Observation (INO) | payer OTHER ==
[2020-10-19 14:31] LABS: Absolute Lymphocytes (CBC) 0.4 K/uL (0.7-4.9); Basophils % 0.3 % (0-1.3); Hematocrit 38.1 % (39.6-49.0); Lymphocytes % 4.7 % (15.3-44.8); MPV 7.6 fL (7.6-11.3); RBC Red Blood Cell Count 4.02 M/uL (4.33-5.43)
[2020-10-19] MEDS ORDERED: PANTOPRAZOLE 40 MG INJ ONE (14:34)
[2020-10-19] MEDS ORDERED: NA CHLORIDE 0.9% 1,000 ML ONE (14:34)
[2020-10-19 14:36] LABS: Protime INR 1.09
[2020-10-19 14:50] LABS: ALT/SGPT 73 U/L (12-78); AST/SGOT 35 U/L (15-37); Albumin 3.3 g/dL (3.4-5.0); Alkaline Phosphatase 62 U/L (45-117); BUN Blood Urea Nitrogen 48 mg/dL (7-18); Bicarbonate 30 mmol/L (21-32); Bilirubin Direct 0.1 mg/dL (0-0.2); Bilirubin Total 0.4 mg/dL (0.2-1.0); Glucose Level 204 mg/dL (74-106); Lipase 78 U/L (73-393); Magnesium 2.3 mg/dL (1.8-2.4); NT PRO-BNP 425 pg/mL (<450); Potassium 3.3 mmol/L (3.5-5.1); Protein, Total 6.8 g/dL (6.4-8.2); Sodium Level 149 mmol/L (136-145); Troponin (Emerg Dept Use Only) < 0.02 ng/mL (0.0-0.045)
--- NOTE | 2020-10-19 15:55 | RAD REPORT ---
EXAM DESCRIPTION: RAD - Chest Single View - 10/19/2020 2:36 pm CLINICAL HISTORY: COUGH COMPARISON: Chest Single View dated 06/18/2020; Chest Single View dated 07/03/2017; Chest Pa And Lat (2 Views) dated 05/26/2017; CHEST PA AND LAT 2 VIEW dated 07/26/2013 FINDINGS: No evidence of edema or pneumonia. The heart size is within normal limits.No acute osseous abnormality. No significant pleural effusions or pneumothorax. Pacemaker. IMPRESSION: No acute cardiopulmonary disease.
--- NOTE | 2020-10-19 16:20 | EDPHYS ---
Physician Documentation [facility] Name: Stewart Anguiano Age: 80 yrs Sex: Male : 1940 Arrival Date: 10/19/2020 Time: 13:42 Bed 3 Private MD: ED Physician Damián Mendes HPI: 10/19 14:11 This 80 yrs old Male presents to ER via EMS with complaints of Gi Bleed. mansoor 14:11 The patient presents to the emergency department with rectal bleeding, a small amount. mnasoor Onset: The symptoms/episode began/occurred 2 day(s) ago. Abdominal pain: none is appreciated. Modifying factors: The symptoms are alleviated by nothing, the symptoms are aggravated by nothing. The patient presents with urinary symptoms, hematuria. Modifying factors: The symptoms are alleviated by nothing, the symptoms are aggravated by nothing. hx of hematuria and colon cancer , gi bleed , dnr. Associated signs and symptoms: Pertinent positives: anorexia, hypotensive. Historical: - Allergies: 14:08 No Known Allergies; jl7 - Home Meds: 17:54 Depakote 125 mg Oral TbEC 2 tabs once daily [Active]; rivastigmine 13.3 mg/24 hour jl7 transdermal pt24 [Active]; hydrochlorothiazide 25 mg Oral tab 1 tab once daily [Active]; cyanocobalamin (vitamin B-12) 1,000 mcg oral tab [Active]; - PMHx: 14:08 colon cancer; Alzheimer's disease; jl7 17:54 - bladder disorder; hematuria; Pacemaker; Anxiety; jl7 - Immunization history:: Adult Immunizations up to date. - Social history:: Smoking status: unknown. ROS: 14:13 Abdomen/GI: Positive for rectal bleeding. mansoor 14:13 : Positive for hematuria. 14:13 Unable to obtain ROS due to obtunded state. Exam: 14:13 Chest/axilla: Normal chest wall appearance and motion. Nontender with no deformity. mansoor No lesions are appreciated. 14:13 Constitutional: The patient appears lethargic. 14:13 Chest/axilla: Exam negative for acute changes, Inspection: normal. 14:13 Cardiovascular: Rate: normal, Rhythm: regular, Heart sounds: murmur, systolic, grade 2 over 6, Edema: is not appreciated, JVD: is not appreciated. 14:13 electronically paced 14:13 Respiratory: the patient does not display signs of respiratory distress, Respirations: normal, Breath sounds: bronchial sounds, that are mild, are scattered, rhonchi, that are mild, are scattered, are located in both bases, stridor, is not appreciated, wheezing: expiratory that is mild. Vital Signs: 14:05 BP 66 / 51; Pulse 74; Resp 15; Temp 97.7; Pulse Ox 95% ; jl7 14:52 BP 89 / 49; Pulse 77; Resp 18 S; Pulse Ox 95% on R/A; aa5 16:07 BP 102 / 55; Pulse 82; Resp 17; Pulse Ox 95% ; jl7 16:30 BP 130 / 69; Pulse 83; Resp 15; Pulse Ox 96% ; jl7 20:00 BP 124 / 60; Pulse 91; Resp 18; Pulse Ox 99% on R/A; lp1 21:00 BP 116 / 71; Pulse 82; Resp 20; Pulse Ox 95% on R/A; lp1 MDM: 13:51 Patient medically screened. [facility] 14:15 Differential diagnosis: gastritis, diverticulitis, hemorrhoids, varices, nonspecific mansoor abdominal pain, UTI, urinary retention, prostatitis, urethritis. Differential Diagnosis sepsis. Data reviewed: vital signs, nurses notes, long term records, lab test result(s), EKG, radiologic studies, CT scan, plain films. Data interpreted: athletic monitor: rate is 74 beats/min, rhythm is regular, Pulse oximetry: on room air is 95 %. Test interpretation: by ED physician or midlevel provider: ECG, plain radiologic studies. Counseling: I had a detailed discussion with the patient and/or guardian regarding: the historical points, exam findings, and any diagnostic results supporting the discharge/admit diagnosis, lab results, radiology results. 10/19 14:09 Order name: Basic Metabolic Panel [facility] 10/19 14:09 Order name: CBC with Diff [facility] 10/19 14:09 Order name: LFT's; Complete Time: 16:12 [facility] 10/19 14:09 Order name: Magnesium; Complete Time: 16:12 [facility] 10/19 14:09 Order name: NT PRO-BNP; Complete Time: 16:12 [facility] 10/19 14:09 Order name: PT-INR; Complete Time: 16:12 [facility] 10/19 14:09 Order name: Troponin (emerg Dept Use Only); Complete Time: 16:12 [facility] 10/19 14:09 Order name: Lipase; Complete Time: 16:12 [facility] 10/19 14:09 Order name: Type And Screen; Complete Time: 16:12 [facility] 10/19 14:09 Order name: Urine Culture [facility] 10/19 14:09 Order name: COVID-19 : Document "Date of Symptom Onset" if Symptomatic. [facility] 10/19 14:09 Order name: Lactate; Complete Time: 16:12 [facility] 10/19 14:09 Order name: Basic Metabolic Panel; Complete Time: 16:12 [facility] 10/19 14:09 Order name: CBC with Automated Diff; Complete Time: 17:42 [facility] 10/19 14:09 Order name: XRAY Chest (1 view) [facility] 10/19 14:10 Order name: Chest Single View; Complete Time: 16:12 [facility] 10/19 14:28 Order name: Depakote; Complete Time: 17:42 [facility] 10/19 17:22 Order name: CBC Smear Scan; Complete Time: 17:42 [facility] 10/19 19:26 Order name: Lactate Sepsis 2 HR Follow-up [facility] 10/19 14:09 Order name: EKG; Complete Time: 14:10 [facility] 10/19 14:09 Order name: Cardiac monitoring; Complete Time: 14:10 [facility] 10/19 14:09 Order name: EKG - Nurse/Tech; Complete Time: 14:10 [facility] 10/19 14:09 Order name: IV Saline Lock; Complete Time: 14:11 [facility] 10/19 14:09 Order name: Labs collected and sent; Complete Time: 14:43 [facility] 10/19 14:09 Order name: O2 Per Protocol; Complete Time: 14:10 [facility] 10/19 14:09 Order name: O2 Sat Monitoring; Complete Time: 14:11 [facility] 10/19 14:09 Order name: Urine Dipstick-Ancillary (obtain specimen); Complete Time: 16:07 [facility] 10/19 14:09 Order name: Dubon; Complete Time: 14:31 [facility] 10/19 15:09 Order name: Misc. Order: irrigate dubon till clear; Complete Time: 16:36 [facility] Administered Medications: 14:31 Drug: NS 0.9% 1000 ml Route: IV; Rate: 1 bolus; Site: left forearm; jl7 16:00 Follow up: Response: No adverse reaction; IV Status: Completed infusion; IV Intake: jl7 1000ml 14:31 Drug: ProTONIX (pantoprazole) 80 mg Route: IVP; Site: left forearm; jl7 16:37 Follow up: Response: No adverse reaction jl7 16:10 Drug: Rocephin (cefTRIAXone) 1 grams Route: IV; Rate: per protocol; Site: left forearm; jl7 16:13 Follow up: Response: No adverse reaction; IV Status: Completed infusion jl7 Disposition Summary: 10/19/20 16:20 Hospitalization Ordered Hospitalization Status: Inpatient Admission mansoor Provider: Bello Melo cha Condition: Serious mansoor Problem: new mansoor Symptoms: are unchanged mansoor Bed/Room Type: Standard mansoor Location: Telemetry/MedSurg (Inpatient)(10/19/20 23:51) bb Room Assignment: 218(10/19/20 23:51) bb Diagnosis - Gross hematuria mansoor - GI Bleed/ Gastrointestinal hemorrhage, unspecified mansoor - Chronic kidney disease, unspecified mansoor - Dehydration mansoor - Hypotension, unspecified mansoor Forms: - Medication Reconciliation Form mansoor - SBAR form mansoor Signatures: Dispatcher [employer] EDMS Damián Mendes MD MD cha Ballard, Brenda RN RN bb Gustabo Prescott FNP-C FNP-Farida Campos RN RN cg Leal, Jahala, RN RN jl7 Corrections: (The following items were deleted from the chart) 14:10 14:10 Basic Metabolic Panel ordered. EDMS EDMS 14:10 14:10 CBC with Automated Diff ordered. EDMS EDMS 14:10 14:10 Liver (Hepatic) Function ordered. EDMS EDMS 14:10 14:10 Magnesium ordered. EDMS EDMS 14:10 14:10 NT PRO-BNP ordered. EDMS EDMS 14:10 14:10 Protime (+INR) ordered. EDMS EDMS 14:10 14:10 Troponin (Emerg Dept Use Only) ordered. EDMS EDMS 14:11 14:10 Lipase ordered. EDMS EDMS 14:11 14:10 Type and Screen ordered. EDMS EDMS 14:11 14:10 Urine Culture ordered. EDMS EDMS 14:11 14:10 CORONAVIRUS ordered. EDMS EDMS 21:32 16:20 Telemetry/MedSurg (Inpatient) hospital [facility] 21:32 16:20 mansoor cg 23:51 21:32 BR ER HOLD cg bb 23:51 21:32 ERHOLD- cg bb
--- NOTE | 2020-10-19 16:20 | ER ---
Nurse's Notes [facility] Name: Angelica Anguiano Age: 80 yrs Sex: Male : 1940 Arrival Date: 10/19/2020 Time: 13:42 Bed 3 Private MD: Diagnosis: Gross hematuria;GI Bleed/ Gastrointestinal hemorrhage, unspecified;Chronic kidney disease, unspecified;Dehydration;Hypotension, unspecified Presentation: 10/19 14:05 Chief complaint: EMS states: Toned out for rectal bleed and syncope, pt was discharged jl7 yesterday with colitis and was eating lunch today when he had a syncopal episode, initial BP was 40 systolic. Coronavirus screen: Client denies travel out of the [place] in the last 14 days. At this time, the client does not indicate any symptoms associated with coronavirus-19. Ebola Screen: No symptoms or risks identified at this time. Initial Sepsis Screen: Does the patient meet any 2 criteria? Systolic BP < 90 mmHg. Mean Arterial Pressure (MAP) < 65. Yes Does the patient have a suspected source of infection? No. Patient's initial sepsis screen is negative. Risk Assessment: Do you want to hurt yourself or someone else? Patient reports no desire to harm self or others. Onset of symptoms was October 19, 2020. Care prior to arrival: Medication(s) given: Normal saline infusion, 500 mL, IV initiated. 22 GA, in the left in the right forearm. Transition of care: Rarden. 14:05 Method Of Arrival: EMS: [facility] 14:05 Acuity: [id number] 2 jl7 Triage Assessment: 13:45 General: Appears in no apparent distress. uncomfortable, Behavior is calm, cooperative. jl7 Pain: Denies pain. Neuro: Level of Consciousness is obeys commands, drowsy. Oriented to person. Cardiovascular: Reports None Patient's skin is warm and dry. Rhythm is atrial pacer. Respiratory: Airway is patent Respiratory effort is even, unlabored, Respiratory pattern is regular, symmetrical. GI: fpc reports rectal bleeding. : Blood noted. Derm: Skin is pink, warm \T\ dry. Historical: - Allergies: 14:08 No Known Allergies; jl7 - Home Meds: 17:54 Depakote 125 mg Oral TbEC 2 tabs once daily [Active]; rivastigmine 13.3 mg/24 hour jl7 transdermal pt24 [Active]; hydrochlorothiazide 25 mg Oral tab 1 tab once daily [Active]; cyanocobalamin (vitamin B-12) 1,000 mcg oral tab [Active]; - PMHx: 14:08 colon cancer; Alzheimer's disease; jl7 17:54 - bladder disorder; hematuria; Pacemaker; Anxiety; jl7 - Immunization history:: Adult Immunizations up to date. - Social history:: Smoking status: unknown. Screenin:00 Abuse screen: unable to obtain. Nutritional screening: No deficits noted. Tuberculosis jl7 screening: No symptoms or risk factors identified. Fall Risk No fall in past 12 months (0 pts). Secondary diagnosis (15 points) Alzheimer's, IV access (20 points). Total Coles Fall Scale indicates High Risk Score (45 or more points). Assessment: 13:45 General: See triage assessment. jl7 14:10 Reassessment: at bedside. jl7 16:30 Reassessment: Hospitalist at bedside assessing pt. jl 20:27 Reassessment: Pt moved from ER stretcher to hospital bed. jl7 21:00 General: Appears in no apparent distress. cachectic, Behavior is restless. Pain: Unable lp1 to use pain scale. Patient is disoriented. Neuro: Level of Consciousness is awake, confused, Oriented to person. Cardiovascular: Patient's skin is warm and dry. Respiratory: Respiratory effort is even, unlabored, Breath sounds are clear bilaterally. GI: Abdomen is flat, Bowel sounds present X 4 quads. Abd is soft and non tender X 4 quads. : to gravity drainage Urine is angelica blood. EENT: No deficits noted. Derm: Skin is fragile, is thin, Skin is dry, Skin is pale. Musculoskeletal: No deficits noted. Vital Signs: 14:05 BP 66 / 51; Pulse 74; Resp 15; Temp 97.7; Pulse Ox 95% ; jl7 14:52 BP 89 / 49; Pulse 77; Resp 18 S; Pulse Ox 95% on R/A; aa5 16:07 BP 102 / 55; Pulse 82; Resp 17; Pulse Ox 95% ; jl7 16:30 BP 130 / 69; Pulse 83; Resp 15; Pulse Ox 96% ; jl7 20:00 BP 124 / 60; Pulse 91; Resp 18; Pulse Ox 99% on R/A; lp1 21:00 BP 116 / 71; Pulse 82; Resp 20; Pulse Ox 95% on R/A; lp1 ED Course: 13:42 Patient arrived in ED. ds1 13:51 Damián Mendes MD is Attending Physician. mansoor 14:00 Patient has correct armband on for positive identification. Placed in gown. Bed in low jl7 position. Call light in reach. Side rails up X2. threat monitoring analyst on. Pulse ox on. NIBP on. Warm blanket given. Pillow given. 14:05 Ger Ferguson, YENIFER is Primary Nurse. jl7 14:08 Triage completed. jl7 14:08 Arm band placed on right wrist. jl7 14:15 EKG done, by ED staff, reviewed by Damián Mendes MD. jl7 14:20 Initial lab(s) drawn, by me, sent to lab. Maintain EMS IV. Dressing intact. Good blood jl7 return noted. Site clean \T\ dry. Gauge \T\ site: 20 R FA and 20 L FA. 14:30 Urine collected: Santiago catheter specimen, angelica blood. jl7 14:31 Santiago cath inserted, using sterile technique, 18 Fr., by me, balloon inflated, to jl7 gravity drainage, urine specimen collected. returned bloody urine. Patient tolerated well. 14:36 Chest Single View In Process Unspecified. EDMS 16:14 Bello Melo MD is Hospitalizing Provider. [facility] 16:37 Bladder irrigated via Santiago with 500 ml normal saline returned angelica blood Patient jl7 tolerated well. 22:15 No provider procedures requiring assistance completed. Patient admitted, IV remains in lp1 place. Administered Medications: 14:31 Drug: NS 0.9% 1000 ml Route: IV; Rate: 1 bolus; Site: left forearm; jl7 16:00 Follow up: Response: No adverse reaction; IV Status: Completed infusion; IV Intake: jl7 1000ml 14:31 Drug: ProTONIX (pantoprazole) 80 mg Route: IVP; Site: left forearm; jl7 16:37 Follow up: Response: No adverse reaction jl7 16:10 Drug: Rocephin (cefTRIAXone) 1 grams Route: IV; Rate: per protocol; Site: left forearm; jl7 16:13 Follow up: Response: No adverse reaction; IV Status: Completed infusion jl7 Intake: 16:00 IV: 1000ml; Total: 1000ml. jl7 Outcome: 16:20 Decision to Hospitalize by Provider. mansoor 22:15 Admitted to ER Hold. Please see [facility] for further documentation. lp1 22:15 Condition: stable 22:15 Instructed on the need for admit. 23:51 Patient left the ED. jaki 10/20 01:28 Patient left the ED. lp1 Signatures: Dispatcher [employer] EDaDmián Rose MD MD cha Sanford, Demi ds1 Yoon Jones, RN RN bb Marisa Dennison, RN RN aa5 Ronda Swan RN RN lp1 Ger Ferguson RN RN jl7
[2020-10-19] MEDS ORDERED: CEFTRIAXONE/SWI 1gm 1 GM/10 ML SYR ONE (16:31)
[2020-10-19 17:22] LABS: Blood Morphology Comment NOT SEEN (NOT SEEN); Platelet Estimate ADEQ; White Blood Cell Scan OK (OK)
--- NOTE | 2020-10-19 17:47 | P.HP ---
Certification for Inpatient Patient admitted to: Observation With expected LOS: <2 Midnights Patient will require the following post-hospital care: Hospice Practitioner: I am a practitioner with admitting privileges, knowledge of patient current condition, hospital course, and medical plan of care. Services: Services provided to patient in accordance with Admission requirements found in Title 42 Section 412.3 of the Code of Federal Regulations Patient History Date of Service: 10/19/20 Primary Care Provider: [facility] Reason for admission: Syncope History of Present Illness: 80-year-old male with advanced dementia with history of colon cancer and likely bladder cancer. Patient presented to the emergency room with a syncopal episode. Patient found to have low blood pressure. Patient was seen yesterday for rectal bleeding. Patient was discharged back to the intermediate. When EMS arrived to the intermediate he was found to be hypotensive. Patient given IV fluids. Patient also had some hematuria. Patient with advanced dementia. Also information came from the . reports patient has been declining in health. Patient recently placed to intermediate. expresses that she does not want any significant intervention including transfer. This includes evaluation of possible bladder mass. Patient seen in the ER. Patient given IV fluids. Improvement noted. Labs reviewed. H&H stable. Santiago catheter in place. Patient admitted for further evaluation. considering hospice. Allergies No Known Allergies Allergy (Verified 06/19/20 00:47) Home medications list reviewed: Yes Home Medications: Cefdinir [Omnicef] 300 mg PO Q12H #14 capsule 06/20/20 Rivastigmine Patch [Exelon 4.6 mg Patch*] 4.6 mg TD DAILY #30 patch 06/20/20 Temazepam [Restoril*] 15 mg PO BEDTIME PRN PRN #10 cap 06/20/20 - Past Medical/Surgical History -: Advanced dementia -: Colon cancer -: Pacemaker -: Tobacco abuse -: pacemaker -: colostomy Psychosocial/ Personal History: Currently at intermediate - Family History Family History: Reviewed- Non-Contributory - Social History Smoking Status: Former smoker Alcohol use: No CD- Drugs: No Caffeine use: No Place of Residence: [facility] Review of Systems is unable to be obtained Physical Examination - Studies Laboratory Data (last 24 hrs) 10/19/20 14:20: PT 12.6 H, INR 1.09 10/19/20 14:20: WBC 8.20 D, Hgb 12.6 L, Hct 38.1 L, Plt Count 217 10/19/20 14:20: Sodium 149 H, Potassium 3.3 L, BUN 48 H, Creatinine 1.62 H, Glucose 204 H, Magnesium 2.3, Total Bilirubin 0.4, AST 35, ALT 73, Alkaline Phosphatase 62, Lipase 78 Assessment and Plan - Plan COVID: Pending Physical exam: GENERAL: Patient is demented. Patient confused VITAL SIGNS: Reviewed HEENT: Neck supple NECK: Supple. No carotid bruits. No lymphadenopathy or thyromegaly. LUNGS: Clear to auscultation. No crackles or wheezes are heard. HEART: Regular rate and rhythm, no appreciable gallops, rubs, murmurs or extra heart sounds ABDOMEN: Soft, nontender, and nondistended. Positive bowel sounds. No hepatosplenomegaly was noted. EXTREMITIES: Without any cyanosis, clubbing, rash, lesions or peripheral edema. NEUROLOGIC: Patient with severe dementia. SKIN: Normal color, turgor and temperature. No ulcerations or rashes noted. Santiago catheter in place Impression: Syncope secondary to dehydration with acute renal failure and hypernatremia with poor oral intake Moderate protein malnutrition Hematuria suspect underlying bladder cancer History of colon cancer Advanced dementia Former tobacco use Plan: Patient will be admitted for further evaluation and treatment. Will continue with IV fluids. Santiago catheter in place. Will proceed with continuous irrigation of the bladder. Will provide medication for pain. Case discussed in detail with . expressed that patient has been declining in health over the past several months. Patient with advanced dementia. Patient is DO NOT RESUSCITATE. Plan for hospice at intermediate. Will consult director social to help arrange for this. Code Status: Patient DNR DVT prophylaxis: SCD Advanced Care Planning-30 minutes: Arrange for hospice at intermediate Discharge Plan: Home Plan to discharge in: 48 Hours - Advance Directives Does patient have a Living Will: No Does patient have a Durable POA for Healthcare: Yes - Code Status/Comfort Care Code Status Assessed: Yes (Patient is DNR) Time Spent Managing Pts Care (In Minutes): 55
[2020-10-20] MEDS ORDERED: LORazepam 2 MG/ML VIAL IV PRN (00:56)
[2020-10-20] MEDS ORDERED: ONDANSETRON 4 MG/2 ML VIAL IV PRN (00:56)
[2020-10-20] MEDS ORDERED: ACETAMINOPHEN 500 MG TAB PO PRN (00:56)
[2020-10-20] MEDS ORDERED: D5W 1,000 ML IV SCH (00:56)
[2020-10-20] MEDS ORDERED: MORPHINE 2 MG/ML SYR IV PRN (00:56)
[2020-10-20] MEDS ORDERED: D5W 1,000 ML IV ONE (01:36)
[2020-10-20] MEDS ORDERED: FAMOTIDINE 20 MG TAB PO ONE (02:00)
[2020-10-20] MEDS ORDERED: NACL 0.9% IRR SOLN 4,000 ML IRR ONE (03:08)
[2020-10-20] MEDS ORDERED: NA CHLORIDE 0.9% 500 ML IV ONE (06:05)
--- NOTE | 2020-10-20 06:06 | P.PN ---
Subjective Date of Service: 10/20/20 Primary Care Provider: [facility] Chief Complaint: Syncope Subjective: Demented Physical Examination - Vital Signs Temperature: 97.3 F Blood Pressure: 92/51 Pulse: 89 Respirations: 16 Pulse Ox (%): 97 - Studies Laboratory Data (last 24 hrs) 10/19/20 14:20: PT 12.6 H, INR 1.09 10/19/20 14:20: WBC 8.20 D, Hgb 12.6 L, Hct 38.1 L, Plt Count 217 10/19/20 14:20: Sodium 149 H, Potassium 3.3 L, BUN 48 H, Creatinine 1.62 H, Glucose 204 H, Magnesium 2.3, Total Bilirubin 0.4, AST 35, ALT 73, Alkaline Phosphatase 62, Lipase 78 Assessment & Plan Discharge Plan: Jail (with hospice) Physician Review Additional Text: COVID: Negative Physical exam: GENERAL: Patient has advanced demented. Patient confused VITAL SIGNS: Reviewed HEENT: Neck supple NECK: Supple. No carotid bruits. No lymphadenopathy or thyromegaly. LUNGS: Clear to auscultation. No crackles or wheezes are heard. HEART: Regular rate and rhythm, no appreciable gallops, rubs, murmurs or extra heart sounds ABDOMEN: Soft, nontender, and nondistended. Positive bowel sounds. No hepatosplenomegaly was noted. EXTREMITIES: muscle wasting noted. NEUROLOGIC: Patient with severe dementia. SKIN: Normal color, turgor and temperature. No ulcerations or rashes noted. Santiago catheter in place Impression: Syncope secondary to dehydration with acute renal failure and hypernatremia with poor oral intake Moderate protein malnutrition Hematuria suspect underlying bladder cancer History of colon cancer Advanced dementia Former tobacco use Plan: Patient with advanced dementia and muscle wasting. Patient has declined over the past several months. Spoke to the at length this am. Will purse hospice at the detention. If this is not available then will consider inpatient hospice. Will DC IV fluids. No urological intevention. Will continue with comfort feeding, comfort measures. Will provide medication for pain. Patient remains DNR. I will turn the service over to the hospitalist team tomorrow. I will go plan of care with him if the patient remains in the hospital. Code Status: Patient DNR DVT prophylaxis: SCD Advanced Care Planning-30 minutes: Arrange for hospice at detention Time Spent Managing Pts Care (In Minutes): 55
[2020-10-20 07:33] LABS: BUN Blood Urea Nitrogen 35 mg/dL (7-18); Bicarbonate 32 mmol/L (21-32); Glucose Level 110 mg/dL (74-106); Magnesium 2.2 mg/dL (1.8-2.4); Potassium 3.4 mmol/L (3.5-5.1); Sodium Level 155 mmol/L (136-145)
[2020-10-20 07:53] LABS: Absolute Lymphocytes (CBC) 0.7 K/uL (0.7-4.9); Basophils % 0.4 % (0-1.3); Hematocrit 31.4 % (39.6-49.0); Lymphocytes % 10.1 % (15.3-44.8); MPV 7.5 fL (7.6-11.3); RBC Red Blood Cell Count 3.37 M/uL (4.33-5.43)
--- NOTE | 2020-10-20 08:02 | EKG ---
Test Date: 2020-10-19 Test Time: 14:01:13 Nanoelectronics Engineer: MARY MEASUREMENT RESULTS: Intervals: Rate: 76 DE: 254 QRSD: 170 QT: 488 QTc: 549 [place]: P: 84 DE: 254 QRS: -86 T: 90 INTERPRETIVE STATEMENTS: Electronic ventricular pacemaker Compared to ECG 06/18/2020 19:40:40 AV dual-paced complex(es) or rhythm no longer present Electronically Signed On 10-20-20 08:00:22 CDT by Mingo Guzman
[2020-10-20 08:09] VITALS: BMI 16.1
[2020-10-20] MEDS ORDERED: FOLIC ACID 1 MG TABLET PO SCH (09:00)
[2020-10-20] MEDS ORDERED: THIAMINE HCL 100 MG TABLET PO SCH (09:00)
[2020-10-20] MEDS ORDERED: RIVASTIGMINE 4.6 MG/24 HR PATCH TD SCH (09:00)
[2020-10-20] MEDS ORDERED: FAMOTIDINE 20 MG TAB PO SCH (09:00)
[2020-10-20] MEDS: KCL 20 MEQ/100 mL IVPB 20 MEQ/100 ML BAG IV SCH ×2 (13:15→14:00)
--- NOTE | 2020-10-20 14:55 | P.DS ---
Admission Date: 10/19/20 Discharge Date: 10/20/20 Primary Care Provider: intermediate Disposition: HOSPICE-MEDICAL FACILITY Discharge Condition: GOOD Reason for Admission: Syncope Consultations: None Procedures: Medical problem list: Syncope secondary to dehydration with acute renal failure and hypernatremia with poor oral intake Moderate protein malnutrition Hematuria suspect underlying bladder cancer History of colon cancer Advanced dementia Former tobacco use Brief History of Present Illness: 80-year-old male with advanced dementia with history of colon cancer and likely bladder cancer. Patient presented to the emergency room with a syncopal episode. Patient found to have low blood pressure. Patient was seen yesterday for rectal bleeding. Patient was discharged back to the care home. When EMS arrived to the care home he was found to be hypotensive. Patient given IV fluids. Patient also had some hematuria. Patient with advanced dementia. Also information came from the . reports patient has been declining in health. Patient recently placed to care home. expresses that she does not want any significant intervention including transfer. This includes evaluation of possible bladder mass. Patient seen in the ER. Patient given IV fluids. Improvement noted. Labs reviewed. H&H stable. Santiago catheter in place. Patient admitted for further evaluation. considering hospice. Hospital Course: Patient presented with syncope secondary to dehydration with acute renal failure and hypernatremia with poor oral intake. Patient also with moderate protein malnutrition, hematuria likely with underlying bladder cancer, history of colon cancer, advanced end-stage dementia and former tobacco use. The patient was admitted for further evaluation. After discussing with the in detail his condition has worsened. Advanced directives addressed in detail. Patient is DNR. After long discussion did not want any future interventions or surgeries. Hospice was addressed in detail with the patient. agreed. Isaiah wan will return to the care home with hospice in place. To continue comfort measures. No need for Santiago catheter. Hospice to continue with care at the care home. Vital Signs/Physical Exam: Temp Pulse Resp BP Pulse Ox 97.8 F 64 12 90/50 L 100 10/20/20 11:56 10/20/20 11:56 10/20/20 11:56 10/20/20 11:56 10/20/20 11:56 General: Alert, Other (Patient with severe dementia) Neck: Supple Respiratory: Clear to auscultation bilaterally Cardiovascular: Normal pulses, Regular rate/rhythm Gastrointestinal: Normal bowel sounds, No masses, No rebound, No guarding Musculoskeletal: Other (Muscle wasting noted throughout.) Neurological: Normal speech, Dementia (Severe dementia) Laboratory Data at Discharge: WBC 6.60 K/uL (4.3-10.9) D 10/20/20 07:11 Hgb 10.7 g/dL (13.6-17.9) L 10/20/20 07:11 Hct 31.4 % (39.6-49.0) L D 10/20/20 07:11 Plt Count 197 K/uL (152-406) 10/20/20 07:11 PT 12.6 SECONDS (9.5-12.5) H 10/19/20 14:20 INR 1.09 10/19/20 14:20 Sodium 155 mmol/L (136-145) H 10/20/20 07:11 Potassium 3.4 mmol/L (3.5-5.1) L 10/20/20 07:11 BUN 35 mg/dL (7-18) H 10/20/20 07:11 Creatinine 0.75 mg/dL (0.55-1.3) 10/20/20 07:11 Glucose 110 mg/dL (74-106) H 10/20/20 07:11 Magnesium 2.2 mg/dL (1.8-2.4) 10/20/20 07:11 Total Bilirubin 0.4 mg/dL (0.2-1.0) 10/19/20 14:20 AST 35 U/L (15-37) 10/19/20 14:20 ALT 73 U/L (12-78) 10/19/20 14:20 Alkaline Phosphatase 62 U/L (45-117) 10/19/20 14:20 Lipase 78 U/L (73-393) 10/19/20 14:20 Home Medications: Rivastigmine Patch [Exelon 4.6 mg Patch*] 4.6 mg TD DAILY #30 patch 06/20/20 Temazepam [Restoril*] 15 mg PO BEDTIME PRN PRN #10 cap 06/20/20 Physician Discharge Instructions: Patient will return to the care home with hospice in place. Comfort feeding to continue Diet: Comfort Activity: Bedrest Followup: Unknown,U [Primary Care Provider] - Time spent managing pt's care (in minutes): 55
[2020-10-20 19:55] VITALS: O2SAT 99
[2020-10-20 22:01] VITALS: BP 171/72; TEMP 98.2
== END 2020-10-20 19:30 | disposition hospice, inpatient (51) ==
LOC: ER 13:41 → ERHOLD 17:44 → 2ND 10-20 02:20
PROVIDERS: ADMIT Family Medicine; ATTEND Family Medicine
DX: E86.0 Dehydration (principal); N17.9 Acute kidney failure, unspecified; E87.0 Hyperosmolality and hypernatremia; F03.90 Unspecified dementia, unspecified severity, without behavioral disturbance, psychotic disturbance, mood disturbance, and anxiety; R31.9 Hematuria, unspecified; E46 Unspecified protein-calorie malnutrition; Z68.1 Body mass index [BMI] 19.9 or less, adult; I95.9 Hypotension, unspecified; M62.50 Muscle wasting and atrophy, not elsewhere classified, unspecified site; K92.2 Gastrointestinal hemorrhage, unspecified; F41.9 Anxiety disorder, unspecified; Z66 Do not resuscitate; Z20.822 Contact with and (suspected) exposure to COVID-19; Z85.038 Personal history of other malignant neoplasm of large intestine; Z87.891 Personal history of nicotine dependence; Z95.0 Presence of cardiac pacemaker
CPT/HCPCS: 96361; 93005; 87088; 85025 ×2; 87086; 80048 ×2; 36415; 86900; 83735 ×2; 86850; 85610; 86901; 80076; 80164; 83605 ×2; 84484; 83690; 83880; 71045; 51700; 51702; 96375; 96374; 99285; U0003; C9113; J3480; J0696; J7040; J7030